=== PATIENT | female | born 1930 | race Caucasian/White ===

== ENCOUNTER 2016-09-07 05:55 | Inpatient (IN) | payer MEDICARE, OTHER ==
[~2016-09-07] VITALS: Ht 152.4 cm; Wt 63.0 kg
[2016-09-07] VITALS (11 sets, daily range): BP systolic 124–189; BP diastolic 56–95; PULSE 66–98; RESP 16–24; TEMP 98.5–98.6; O2SAT 91–99
[~2016-09-07 05:55] MED LIST: CIPR250T2 PO; ECOT81TA2 PO; MAGN400T PO; METR-1 PO; MYCO250 PO; NOVO7030P2 SQ; OMEP20TA PO; PRED5 PO; SAXA5TAB2 PO; TACR1 PO
[2016-09-07] MEDS ORDERED: ONDANSETRON HCL 4 MG/2 ML VIAL IV PUSH ONE (06:15)
[2016-09-07] MEDS ORDERED: SODIUM CHLOR 0.9% 1000 ML INJ 1,000 ML IV SCH (06:15)
[2016-09-07] MEDS ORDERED: MORPHINE SULFATE 4 MG/ML INJ IV PUSH ONE (06:15)
--- NOTE | 2016-09-07 06:22 | PD ---
HPI Chief Complaint: Fall Time Seen by Provider: 06:00 Travel History International Travel<30 days: No Contact w/Intl Traveler<30days: No Traveled to known affect area: No History of Present Illness HPI The patient is 86 year old female who presents to the [facility] emergency department with a history of reportedly being heard to fall by her son. She was found between the bed and the wall. The patient was noted to have skin tears to bilateral arms. The patient was noted to be confused. The patient was awake. The patient cannot recall the fall. The patient reports that she has 10 out of 10 right leg pain above her knee and the thigh, and left knee pain. The patient is unsure whether she hit her head. She is unsure whether she lost consciousness. She denies having any neck pain, paresthesias, or extremity weakness. The patient's blood sugar was noted by ambulance services on their arrival to be 45. The family had noted that the patient's blood sugar was 36 prior to ambulance services arrival and gave her oral glucose and a sandwich. The patient was given 12.5 g of glucose by ambulance services. The patient became increasingly alert. On arrival the patient is oriented to person , place, time, and situation. The patient has a history of renal failure status post renal transplant. The patient was noted prior to arrival to have tachycardia 1 teens with what appeared to be atrial fibrillation. The patient has no prior known history of A. fib. She denies taking any anticoagulants. The patient denies having any recent fevers, cough, congestion, neck pain, chest pain, shortness of breath, abdominal pain, vomiting, diarrhea, urinary symptoms, or neurologic symptoms. [facility] Past Medical History Narrative Medical The patient's past medical history is significant for chronic renal failure, history of poor vision, history of coronary artery disease and myocardial infarction previously, history of hypertension, COPD. Arthritis: Yes Asthma: Yes Autoimmune Disease: No Anxiety: No Depression: No Heart Rhythm Problems: No Cancer: No Cardiovascular Problems: Yes High Cholesterol: No Chemotherapy: No Chest Pain: No Congestive Heart Failure: No COPD: Yes Cerebrovascular Accident: No Coronary Artery Disease: No Diabetes: Yes Endocrine: Yes Gastrointestinal Disorders: Yes GERD: Yes Genitourinary: No Hiatal Hernia: Yes Hypertension: Yes Immune Disorder: No Kidney Stones: No Musculoskeletal: No Neurologic: No Psychiatric: No Reproductive: No Respiratory: Yes Migraines: No Radiation Therapy: No Renal Failure: Yes Seizures: No Sickle Cell Disease: No Sleep Apnea: No Thyroid Disease: No Ulcer: No Tubal Ligation: Yes Past Surgical History Narrative Surgical The patient's past surgical history is significant for renal transplant, cholecystectomy, hysterectomy, bilateral tubal ligation. Abdominal Surgery: Yes (appendix) AICD: No Appendectomy: Yes Arteriovenous Shunt: No Cardiac Surgery: No Cholecystectomy: Yes Ear Surgery: No Endocrine Surgery: No Eye Surgery: Yes Genitourinary Surgery: Yes (gall bladder, kidney transplant (RIGHT)) Gynecologic Surgery: Yes (hysterectomy) Insulin Pump: No Joint Replacement: No Oral Surgery: Yes (teeth pulled for dentures) Pacemaker: No Thoracic Surgery: No Other Surgery: Yes (KIDNEY TRANSPLANT) Social History Alcohol Use: No Tobacco Use: No Substance Use: No Allergies-Medications (Allergen,Severity, Reaction): Coded Allergies: No Known Allergies (Unverified , 09/07/16) Reported Meds & Prescriptions Reported Meds & Active Scripts Active Flagyl (Metronidazole) 500 Mg Tab 500 Mg PO TID 7 Days Ciprofloxacin Hcl (Ciprofloxacin HCl) 250 Mg Tab 250 Mg PO BID 7 Days Prograf 1 Mg Cap (Tacrolimus) 1 Mg Cap 2 Mg PO BID@06,18 30 Days Ecotrin (Aspirin) 81 Mg Tabec 81 Mg PO DAILY 30 Days Mag-Ox 400 (Magnesium Oxide) 400 Mg Tab 400 Mg PO DAILY 30 Days Cellcept (Mycophenolate Mofetil) 250 Mg Cap 750 Mg PO BID 30 Days Reported Omeprazole 20 mg (Omeprazole) 20 Mg Tab 20 Mg PO DAILY Deltasone 5 mg Tab (Prednisone) 5 Mg Tab 7.5 Mg PO DAILY Novolin 70/30 (Insulin Human Isoph/Insulin Regular) 100 Units/Ml Inj 15 Units SQ DAILY IN THE PM Novolin 70/30 (Insulin Human Isoph/Insulin Regular) 100 Units/Ml Inj 25 Units SQ DAILY IN THE AM Onglyza (Saxagliptin Hydrochloride) 5 Mg Tab 5 Mg PO DAILY Review of Systems Except as stated in HPI: all other systems reviewed are Neg General / Constitutional: No: Fever Eyes: No: Visual changes HENT: No: Headaches Cardiovascular: No: Chest Pain or Discomfort Respiratory: No: Shortness of Breath Gastrointestinal: No: Abdominal Pain Genitourinary: No: Dysuria Musculoskeletal: Positive: Myalgias, Arthralgias, Limited ROM, Pain Skin: No Rash Neurologic: Positive: Change in Mentation, No: Weakness, Focal Abnormalities, Slurred Speech, Sensory Disturbance Psychiatric: No: Depression Endocrine: No: Polydipsia Hematologic/Lymphatic: No: Easy Bruising Physical Exam Narrative General: The patient is a well-developed well-nourished female, uncomfortable appearing on examination reporting right leg pain.. Head and Neck exam: Head is normocephalic atraumatic. Eyes: Pupil are equal round and reactive to light. Nose: Midline septum with pink mucous membranes Mouth: Dentition unremarkable. Moist mucus membranes. Posterior oropharynx is not erythematous. No tonsillar hypertrophy. Uvula midline. Airway patent. Neck: No palpable lymphadenopathy. No nuchal rigidity. No thyromegaly. No spinous process tenderness to palpation. No step-off or crepitus, no erythema or ecchymosis. She has no pain with active range of motion of her neck with flexion and extension and rotation. Cardiovascular: Irregularly irregular with a rate in the low 100s without murmurs, gallops, or rubs. Lungs: Clear to auscultation bilaterally. No wheezes, rhonchi, or rales. Abdomen: Soft, without tenderness to palpation in all 4 quadrants of the abdomen. No guarding, rebound, or rigidity. Normal bowel sounds are audible. Extremities: No clubbing, cyanosis, or edema. 2+ pulses in all 4 extremities. No calf tenderness on palpation. On examination of the patient's extremities. She has no shortening, internal, or external rotation of her legs. The patient however reports having right hip and femur pain. The patient has tenderness on palpation of the area. The patient has no visible swelling or ecchymosis. The patient additionally on examination of the left knee has tenderness on palpation anteriorly over the patella. There is erythema noted. There is no effusion. No ballotable patella. No ligament laxity. Back: No spinous process tenderness to palpation. No costovertebral angle tenderness to palpation. Neurologic Exam: Grossly nonfocal. Skin Exam: The patient has skin tears, abrasions to the upper extremities with bandages applied prior to arrival. Data Data Last Documented VS Vital Signs Date Time Temp Pulse Resp B/P Pulse Ox O2 Delivery O2 Flow Rate FiO2 09/07/16 06:06 98.6 98 16 95 Room Air Orders Femur (Ap & Lat/2vws) (09/07/16 06:11) Hip, Uni(Ap&Lat) W Ap Pelvis (09/07/16 06:11) Knee, Complete (4vws) (09/07/16 06:11) Electrocardiogram (09/07/16 06:11) Complete Blood Count With Diff (09/07/16 06:11) Comprehensive Metabolic Panel (09/07/16 06:11) Creatine Kinase (Cpk) (09/07/16 06:11) Ckmb (Isoenzyme) Profile (09/07/16 06:11) Troponin I (09/07/16 06:11) B-Type Natriuretic Peptide (09/07/16 06:11) Prothrombin Time / Inr (Pt) (09/07/16 06:11) Act Partial Throm Time (Ptt) (09/07/16 06:11) Urinalysis - C+S If Indicated (09/07/16 06:11) Magnesium (Mg) (09/07/16 06:11) Chest, Single Ap (09/07/16 06:11) Ct Brain W/O Iv Contrast(Rout) (09/07/16 06:11) Iv Access Insert/Monitor (09/07/16 06:11) Ecg Monitoring (09/07/16 06:11) Oximetry (09/07/16 06:11) Blood Glucose (09/07/16 06:11) Ct Cerv Spine W/O Contrast (09/07/16 ) Sodium Chlor 0.9% 1000 Ml Inj (Ns 1000 M (09/07/16 06:15) Morphine Inj (Morphine Inj) (09/07/16 06:15) Ondansetron Inj (Zofran Inj) (09/07/16 06:15) Labs Laboratory Tests Test 09/07/16 06:20 White Blood Count 10.7 TH/MM3 Red Blood Count 4.24 MIL/MM3 Hemoglobin 11.6 GM/DL Hematocrit 35.8 % Mean Corpuscular Volume 84.3 FL Mean Corpuscular Hemoglobin 27.4 PG Mean Corpuscular Hemoglobin 32.5 % Concent Red Cell Distribution Width 16.5 % Platelet Count 235 TH/MM3 Mean Platelet Volume 7.7 FL Neutrophils (%) (Auto) 83.8 % Lymphocytes (%) (Auto) 9.5 % Monocytes (%) (Auto) 6.0 % Eosinophils (%) (Auto) 0.3 % Basophils (%) (Auto) 0.4 % Neutrophils # (Auto) 9.0 TH/MM3 Lymphocytes # (Auto) 1.0 TH/MM3 Monocytes # (Auto) 0.6 TH/MM3 Eosinophils # (Auto) 0.0 TH/MM3 Basophils # (Auto) 0.0 TH/MM3 CBC Comment DIFF FINAL Differential Comment Prothrombin Time 11.2 SEC Prothromb Time International 1.0 RATIO Ratio Activated Partial 21.4 SEC Thromboplast Time MDM Medical Decision Making Medical Screen Exam Complete: Yes Emergency Medical Condition: Yes Medical Record Reviewed: Yes Differential Diagnosis Right hip fracture, versus femur fracture, versus pelvic fracture, versus musculoskeletal strain, versus left knee fracture, versus intracranial trauma, versus cervical spine. Narrative Course During the course of the patients emergency department visit, the patients history, examination, and differential diagnosis were reviewed with the patient. The patient had IV access obtained and blood work sent for analysis. The patient was placed on a retail sales merchandiser with oximetry and blood pressure monitoring. This is a patient status post fall, likely related to confusion from hypoglycemia. This is a patient with what appears to be new onset atrial fibrillation. EKG was done on arrival that shows atrial fibrillation with a heart rate of 93, marked left axis deviation, no acute ST segment elevation is noted. Chest x-ray, left knee x-ray, right femur, right hip, pelvis x-ray were ordered. CT scan of the head and neck was ordered. The patient was provided morphine for pain, Zofran for nausea, normal saline at 75 mL per hour was started. The patients laboratory studies were reviewed and remarkable for a CBC that is unremarkable. PT PTT unremarkable within normal limits. The patient's case has been checked out to Dr. Brewer as the rest of the patient's laboratory studies and imaging are pending. The patient will be admitted to the hospital for continued evaluation and treatment. Diagnosis Primary Impression: Fall Qualified Code: W19.XXXA - Fall, initial encounter Additional Impressions: Hypoglycemia New onset atrial fibrillation Johana Ortiz MD Sep 07, 2016 06:22
[2016-09-07 06:51] LABS: BASOPHIL % 0.4 % (0.0-2.0); EOSINOPHIL % 0.3 % (0.0-4.0); HEMATOCRIT 35.8 % (35.0-46.0); HEMO FLAGS DIFF FINAL; LYMPH % 9.5 % (9.0-44.0); MEAN CELL VOLUME 84.3 FL (80.0-100.0); MEAN CORPUSCULAR HEMOGLOBIN 27.4 PG (27.0-34.0); MEAN CORPUSCULAR HGB CONC 32.5 % (32.0-36.0); NEUT % 83.8 % (16.0-70.0); PLATELET COUNT 235 TH/MM3 (150-450); RED BLOOD COUNT 4.24 MIL/MM3 (4.00-5.30); RED CELL DISTRIBUTION WIDTH 16.5 % (11.6-17.2); WHITE BLOOD COUNT 10.7 TH/MM3 (4.0-11.0)
--- NOTE | 2016-09-07 07:02 | PD ---
Physical Exam Date Seen by Provider: Sep 07, 2016 Time Seen by Provider: 07:00 Narrative The patient is a 86-year-old female was initially evaluated by the previous physician, Dr. Ortiz. Please refer to the initial history, physical, diagnostic evaluation, treatment modality plan. The patient was signed out at 7 AM with imaging laboratory evaluation pending. The patient apparently fell was complaining of right hip and right leg pain and was also noted to have new onset atrial fibrillation. Data Data Last Documented VS Vital Signs Date Time Temp Pulse Resp B/P Pulse Ox O2 Delivery O2 Flow Rate FiO2 09/07/16 11:17 74 16 146/70 95 Room Air 09/07/16 06:06 98.6 Orders Femur (Ap & Lat/2vws) (09/07/16 06:11) Hip, Uni(Ap&Lat) W Ap Pelvis (09/07/16 06:11) Knee, Complete (4vws) (09/07/16 06:11) Electrocardiogram (09/07/16 06:11) Complete Blood Count With Diff (09/07/16 06:11) Comprehensive Metabolic Panel (09/07/16 06:11) Creatine Kinase (Cpk) (09/07/16 06:11) Ckmb (Isoenzyme) Profile (09/07/16 06:11) Troponin I (09/07/16 06:11) B-Type Natriuretic Peptide (09/07/16 06:11) Prothrombin Time / Inr (Pt) (09/07/16 06:11) Act Partial Throm Time (Ptt) (09/07/16 06:11) Urinalysis - C+S If Indicated (09/07/16 06:11) Magnesium (Mg) (09/07/16 06:11) Chest, Single Ap (09/07/16 06:11) Ct Brain W/O Iv Contrast(Rout) (09/07/16 06:11) Iv Access Insert/Monitor (09/07/16 06:11) Ecg Monitoring (09/07/16 06:11) Oximetry (09/07/16 06:11) Blood Glucose (09/07/16 06:11) Ct Cerv Spine W/O Contrast (09/07/16 ) Sodium Chlor 0.9% 1000 Ml Inj (Ns 1000 M (09/07/16 06:15) Morphine Inj (Morphine Inj) (09/07/16 06:15) Ondansetron Inj (Zofran Inj) (09/07/16 06:15) CKMB (09/07/16 06:20) CKMB% (09/07/16 06:20) Tetanus/Diphtheria Tox Adult (Tetanus/Di (09/07/16 07:45) Aspirin Chew (Aspirin Chew) (09/07/16 08:15) Ct Pelvis W/O Iv Contrast (09/07/16 ) Admit Order (Ed Use Only) (09/07/16 11:46) Labs Laboratory Tests Test 09/07/16 09/07/16 06:20 07:00 White Blood Count 10.7 TH/MM3 Red Blood Count 4.24 MIL/MM3 Hemoglobin 11.6 GM/DL Hematocrit 35.8 % Mean Corpuscular Volume 84.3 FL Mean Corpuscular Hemoglobin 27.4 PG Mean Corpuscular Hemoglobin 32.5 % Concent Red Cell Distribution Width 16.5 % Platelet Count 235 TH/MM3 Mean Platelet Volume 7.7 FL Neutrophils (%) (Auto) 83.8 % Lymphocytes (%) (Auto) 9.5 % Monocytes (%) (Auto) 6.0 % Eosinophils (%) (Auto) 0.3 % Basophils (%) (Auto) 0.4 % Neutrophils # (Auto) 9.0 TH/MM3 Lymphocytes # (Auto) 1.0 TH/MM3 Monocytes # (Auto) 0.6 TH/MM3 Eosinophils # (Auto) 0.0 TH/MM3 Basophils # (Auto) 0.0 TH/MM3 CBC Comment DIFF FINAL Differential Comment Prothrombin Time 11.2 SEC Prothromb Time International 1.0 RATIO Ratio Activated Partial 21.4 SEC Thromboplast Time Sodium Level 140 MEQ/L Potassium Level 4.0 MEQ/L Chloride Level 107 MEQ/L Carbon Dioxide Level 24.8 MEQ/L Anion Gap 8 MEQ/L Blood Urea Nitrogen 21 MG/DL Creatinine 0.77 MG/DL Estimat Glomerular Filtration 71 ML/MIN Rate Random Glucose 132 MG/DL Calcium Level 8.0 MG/DL Magnesium Level 1.8 MG/DL Total Bilirubin 0.2 MG/DL Aspartate Amino Transf 20 U/L (AST/SGOT) Alanine Aminotransferase 14 U/L (ALT/SGPT) Alkaline Phosphatase 51 U/L Total Creatine Kinase 158 U/L Creatine Kinase MB 3.5 NG/ML Troponin I 0.06 NG/ML B-Type Natriuretic Peptide 287 PG/ML Total Protein 5.7 GM/DL Albumin 2.5 GM/DL Urine Color LIGHT-YELLOW Urine Turbidity CLEAR Urine pH 6.0 Urine Specific [place] 1.009 Urine Protein 100 mg/dL Urine Glucose (UA) NEG mg/dL Urine Ketones NEG mg/dL Urine Occult Blood TRACE Urine Nitrite NEG Urine Bilirubin NEG Urine Urobilinogen LESS THAN 2.0 MG/DL Urine Leukocyte Esterase NEG Urine RBC 1 /hpf Urine WBC 1 /hpf Urine Squamous Epithelial <1 /hpf Cells Urine Mucus FEW /lpf Microscopic Urinalysis Comment CULT NOT INDICATED MDM Medical Record Reviewed: Yes Supervised Visit with [facility]: No Interpretation(s) EKG reveals atrial fibrillation with a rate of 93. Laboratory Tests Test 09/07/16 06:20 White Blood Count 10.7 TH/MM3 Red Blood Count 4.24 MIL/MM3 Hemoglobin 11.6 GM/DL Hematocrit 35.8 % Mean Corpuscular Volume 84.3 FL Mean Corpuscular Hemoglobin 27.4 PG Mean Corpuscular Hemoglobin 32.5 % Concent Red Cell Distribution Width 16.5 % Platelet Count 235 TH/MM3 Mean Platelet Volume 7.7 FL Neutrophils (%) (Auto) 83.8 % Lymphocytes (%) (Auto) 9.5 % Monocytes (%) (Auto) 6.0 % Eosinophils (%) (Auto) 0.3 % Basophils (%) (Auto) 0.4 % Neutrophils # (Auto) 9.0 TH/MM3 Lymphocytes # (Auto) 1.0 TH/MM3 Monocytes # (Auto) 0.6 TH/MM3 Eosinophils # (Auto) 0.0 TH/MM3 Basophils # (Auto) 0.0 TH/MM3 CBC Comment DIFF FINAL Differential Comment Prothrombin Time 11.2 SEC Prothromb Time International 1.0 RATIO Ratio Activated Partial 21.4 SEC Thromboplast Time B-Type Natriuretic Peptide 287 PG/ML CMP reveals BUN of 21, glucose 132, total protein 5.7, albumin 2.5, calcium 8.0 , otherwise unremarkable CK 158, CK-MB 3.[address] the pelvis reveals no acute fracture. Osteopenia. No dislocation. Moderate osteoarthritis of the bilateral hips. Differential Diagnosis Differential diagnosis includes mechanical fall, pelvic rami fracture, hip fracture, femur fracture, new onset atrial fibrillation, left foot abnormality, UTI, hypoglycemia. Narrative Course The patient was initially evaluated by the previous physician, Dr. Ortiz, please refer to the initial history, physical, diagnostic evaluation, and treatment modality plan. Patient was signed out with CT, x-ray, and laboratory evaluation pending. Patient was also noted to have new onset atrial fibrillation today, admission was recommended by the previous physician. On telemetry monitoring it appears the patient varied between atrial fibrillation with a controlled rate that was less than 100 and occasional sinus rhythm with visible P waves. Physical examination reveals superficial skin tears to the arms bilaterally as well as a small hematoma/bruise over the anterior aspect the left knee. The patient was able to flex the right hip and right knee, they complain of right hip to mid right femur pain. The patient's tetanus shot was updated as she cannot recall the last tetanus shot. The patient's initial blood sugar was noted to be 36 at home according to the son who said the patient. When EMS arrived the patient's blood sugar was 45, and she was subsequently administered 12.5 g of dextrose intravenously. Upon arrival the patient's blood sugar was normal. The patient states she last took her insulin 70/30 last night at 9:30 PM, 15 units. The patient does take an oral hypoglycemic medication, Saxagliptin. The patient's troponin was elevated 0.06, may be secondary to new onset atrial fibrillation. Therefore, patient was administered aspirin 162 mg orally. X-rays are negative for fracture and CT the pelvis is negative for fracture. The patient will be admitted for new-onset atrial fibrillation with mildly elevated troponin of 0.06. Patient will also be admitted for evaluation of her glucose as she came in with hypoglycemia and is on an oral hypoglycemic medication as well as insulin. Physician Communication Physician Communication [facility] were paged for admission. I discussed the patient with Dr. Sow who agrees with admission. Diagnosis Primary Impression: New onset atrial fibrillation Additional Impression: Hypoglycemia Admitting Information Admitting Physician Requests: Admit Condition: Stable Alex Brewer MD Sep 07, 2016 07:02
[2016-09-07 07:05] LABS: APTT (PATIENT) 21.4 SEC (24.3-30.1); PROTHROMBIN TIME - PATIENT 11.2 SEC (9.8-11.6)
--- NOTE | 2016-09-07 07:09 | RADRPT ---
EXAM DATE/TIME: 09/07/2016 06:46 [facility] COMPARISON: No previous studies available for comparison. INDICATIONS : Fall, confusion. RADIATION DOSE: 30.24 CTDIvol (mGy) MEDICAL HISTORY : Hypertension. SURGICAL HISTORY : Appendectomy. Hysterectomy.Cholecystectomy. ENCOUNTER: Initial ACUITY: 1 day PAIN SCALE: 0/10 LOCATION: cranial TECHNIQUE: Multiple contiguous axial images were obtained of the head. Using automated exposure control and adj ustment of the mA and/or kV according to patient size, radiation dose was kept as low as reasonably a chievable to obtain optimal diagnostic quality images. FINDINGS: CEREBRUM: The ventricles are normal for age. There are chronic lacunar infarcts in the left thalamus and the ri ght internal capsule. No evidence of midline shift, mass lesion, hemorrhage or acute infarction. No extra-axial fluid collections are seen. POSTERIOR FOSSA: The cerebellum and brainstem are intact. The 4th ventricle is midline. The cerebellopontine angle i s unremarkable. EXTRACRANIAL: The visualized portion of the orbits is intact. SKULL: The calvaria is intact. No evidence of skull fracture. CONCLUSION: Bilateral old lacunar infarcts. No evidence of hemorrhage or edema Kenn Moreau MD on September 07, 2016 at 7:07 Board Certified Radiologist. This report was verified electronically.
--- NOTE | 2016-09-07 07:12 | RADRPT ---
EXAM DATE/TIME: 09/07/2016 06:46 [facility] COMPARISON: No previous studies available for comparison. INDICATIONS : Fall, neck pain. RADIATION DOSE: 20.58 CTDIvol (mGy) MEDICAL HISTORY : Hypertension. SURGICAL HISTORY : Appendectomy. Cholecystectomy.Hysterectomy. ENCOUNTER: Initial ACUITY: 1 day PAIN SCALE: 2/10 LOCATION: Bilateral neck TECHNIQUE: Volumetric scanning of the cervical spine was performed. Multiplanar reconstructions in the sagittal, coronal and oblique axial planes were performed. Using automated exposure control and adjustment o f the mA and/or kV according to patient size, radiation dose was kept as low as reasonably achievable to obtain optimal diagnostic quality images. FINDINGS: VERTEBRAE: Normal vertebral body height. Mild disc space narrowing at C5-6 and C6-7. There are fused posterior e lements at C2-3 and the right-sided C6-C7. ALIGNMENT: There is anterior spondylolisthesis of C4 on C5, C5 on C6 and C6 on C7.. C2-C3: The bony spinal canal is normal in size. No evidence of disc bulge or herniation. The neural forami na are bilaterally patent. C3-C4: The bony spinal canal is normal in size. No evidence of disc bulge or herniation. The neural forami na are bilaterally patent. C4-C5: The bony spinal canal is normal in size. No evidence of disc bulge or herniation. The neural forami na are bilaterally patent. C5-C6: The bony spinal canal is normal in size. No evidence of disc bulge or herniation. The neural forami na are bilaterally patent. C6-C7: The bony spinal canal is normal in size. No evidence of disc bulge or herniation. The neural forami na are bilaterally patent. C7-T1: The bony spinal canal is normal in size. No evidence of disc bulge or herniation. The neural forami na are bilaterally patent. 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 No evidence of acute fracture. Kenn Moreau MD on September 07, 2016 at 7:09 Board Certified Radiologist. This report was verified electronically.
[2016-09-07 07:19] LABS: ALKALINE PHOSPHATASE 51 U/L (45-117); ALT (GPT) 14 U/L (10-53); ANION GAP 8 MEQ/L (5-15); AST (GOT) 20 U/L (15-37); BICARBONATE 24.8 MEQ/L (21.0-32.0); BLOOD UREA NITROGEN 21 MG/DL (7-18); CHLORIDE 107 MEQ/L (98-107); CREATINE KINASE 158 U/L (26-192); GLOMERULAR FILTRATION RATE 71 ML/MIN (>89); MAGNESIUM 1.8 MG/DL (1.5-2.5); SODIUM (NA) 140 MEQ/L (136-145); TOTAL BILIRUBIN ADULT 0.2 MG/DL (0.2-1.0)
[2016-09-07] MEDS ORDERED: MAGN400T2 PO (07:29)
[2016-09-07] MEDS ORDERED: PRED5TAB PO (07:29)
[2016-09-07] MEDS ORDERED: TACR1 PO (07:29)
[2016-09-07] MEDS ORDERED: NOVO7030P2 SQ ×2 (07:29)
[2016-09-07] MEDS ORDERED: ONGL5TAB PO (07:29)
[2016-09-07] MEDS ORDERED: OMEP20TA PO (07:29)
[2016-09-07] MEDS ORDERED: MYCO250C PO (07:29)
[2016-09-07 07:32] LABS: CKMB 3.5 NG/ML (0.5-3.6)
[2016-09-07 07:38] LABS: BLOOD, URINE TRACE (NEG); GLUCOSE,URINE NEG (NEG); KETONE, URINE NEG (NEG); MUCUS URINE FEW /lpf (OCC); NITRITE,URINE NEG (NEG); SQUAMOUS EPITHELIAL CELL URINE <1 /hpf (0-5); URINE COLOR LIGHT-YELLOW (YELLW/STRAW)
[2016-09-07 07:42] LABS: COMMENT (UR) CULT NOT INDICATED; CULTURE IF INDICATED CULT NOT INDICATED
[2016-09-07] MEDS ORDERED: TETANUS/DIPHTHERIA TOXOID ADULT 0.5 ML VIAL IM ONE (07:45)
[2016-09-07] MEDS ORDERED: ASPIRIN 81 MG CHEW TAB CHEW ONE (08:15)
--- NOTE | 2016-09-07 09:32 | RADRPT ---
EXAM DATE/TIME: 09/07/2016 08:26 [facility] COMPARISON: CHEST SINGLE AP, February 22, 2016, 15:40. INDICATIONS: Chest pain due to fall out of bed this am. MEDICAL HISTORY: Hypertension. Diabetes mellitus type II. Chronic obstructive pulmonary disease. SURGICAL HISTORY: Appendectomy. Cholecystectomy. Hysterectomy. ENCOUNTER: Initial ACUITY: 1 day PAIN SCORE: 4/10 LOCATION: Chest FINDINGS: Lungs are under aerated with mild interstitial prominence. The heart is enlarged. There is no pneum othorax. Degenerative changes are seen about the right shoulder. There is no evidence for rib fract ure. CONCLUSION: Under aerated with mild interstitial prominence and cardiomegaly. Thony Chavez MD FACR on September 07, 2016 at 9:22 Board Certified Radiologist. This report was verified electronically.
--- NOTE | 2016-09-07 09:33 | RADRPT ---
EXAM DATE/TIME: 09/07/2016 08:33 [facility] COMPARISON: No previous studies available for comparison. INDICATIONS : Right hip pain due to fallout of bed. MEDICAL HISTORY : Hypertension. Chronic obstructive pulmonary disease. Diabetes mellitus type II. SURGICAL HISTORY : Appendectomy. Cholecystectomy.Hysterectomy. ENCOUNTER: Initial ACUITY: 1 day PAIN SCORE: 4/10 LOCATION: Right pelvis Hip. FINDINGS: The bones are diffusely osteopenic. No acute fracture identified. Extensive vascular calcifications. Surgical clips in the right hemipelvis. Flocculent calcification central pelvis probably from calcifi ed fibroids. Contrast in sigmoid diverticula. CONCLUSION: 1. No acute bony abnormalities. Osteopenia. Osei Lopez MD on September 07, 2016 at 9:25 Board Certified Radiologist. This report was verified electronically.
--- NOTE | 2016-09-07 09:34 | RADRPT ---
EXAM DATE/TIME: 09/07/2016 08:38 [facility] COMPARISON: No previous studies available for comparison. INDICATIONS : Right femur pain due to fall out of bed. MEDICAL HISTORY : Hypertension. Chronic obstructive pulmonary disease. Diabetes mellitus type II. SURGICAL HISTORY : Appendectomy. Cholecystectomy.Hysterectomy. ENCOUNTER: Initial ACUITY: 1 day PAIN SCORE: 4/10 LOCATION: Right Femur. FINDINGS: Two view examination of the right femur demonstrates osteopenia. No acute fracture. Extensive vascula r calcifications. 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 Moderate osteoarthritis right hip. CONCLUSION: 1. No acute bony abnormalities. Osei Lopez MD on September 07, 2016 at 9:32 Board Certified Radiologist. This report was verified electronically.
--- NOTE | 2016-09-07 09:35 | RADRPT ---
EXAM DATE/TIME: 09/07/2016 08:42 [facility] COMPARISON: No previous studies available for comparison. INDICATIONS : Left knee pain due to fall out of bed. MEDICAL HISTORY : Hypertension. Chronic obstructive pulmonary disease. Diabetes mellitus type II. SURGICAL HISTORY : Appendectomy. Cholecystectomy.Hysterectomy. ENCOUNTER: Initial ACUITY: 1 day PAIN SCORE: 4/10 LOCATION: Left Knee. FINDINGS: No acute fracture. Extensive vascular calcifications. 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 No significant join t effusion. CONCLUSION: 1. No acute bony abnormalities. Osei Lopez MD on September 07, 2016 at 9:33 Board Certified Radiologist. This report was verified electronically.
--- NOTE | 2016-09-07 10:24 | EKG ---
Date Performed: 09/07/2016 Time Performed: 06:06:29 PTAGE: 86 years EKG: Sinus rhythm WITH FREQUENT PACs MARKED LEFT AXIS DEVIATION VOLTAGE CRITERIA FOR LVH POSSIBLE ANTERIOR MYOCARDIAL INFARCTION ABNORMAL ECG PREVIOUS TRACING : 02/14/2016 16.14 DOCTOR: Kenn Crowley Interpretating Date/Time 09/07/2016 10:23:49
--- NOTE | 2016-09-07 11:02 | RADRPT ---
EXAM DATE/TIME: 09/07/2016 10:21 [facility] COMPARISON: No previous studies available for comparison. INDICATIONS : Right hip pain after fall. ORAL CONTRAST: No oral contrast ingested. RADIATION DOSE: 20.34 CTDIvol (mGy) MEDICAL HISTORY : Cardiovascular disease. Hypertension. Diabetes mellitus type 1. SURGICAL HISTORY : Cholecystectomy. Appendectomy. ENCOUNTER: Initial ACUITY: 1 day PAIN SCALE: 5/10 LOCATION: Right hip TECHNIQUE: Volumetric scanning of the pelvis was performed. Using automated exposure control and adjustment of the mA and/or kV according to patient size, radiation dose was kept as low as reasonably achievable t o obtain optimal diagnostic quality images. FINDINGS: No acute fracture is identified. The bones are osteopenic. Renal transplant in right lower quadrant. No hydronephrosis. Small fat containing ventral hernia. Calcified fibroids and residual uterine tissu e. Severe sigmoid diverticulosis containing some residual barium. CONCLUSION: 1. No acute fracture. Osteopenia. No dislocation. Moderate osteoarthritis of the bilateral hips. Osei Lopez MD on September 07, 2016 at 10:55 Board Certified Radiologist. This report was verified electronically.
[2016-09-07] MEDS ORDERED: SODIUM CHLORIDE 0.9% FLUSH 5 ML FLUSH FLUSH PRN (12:00)
[2016-09-07] MEDS ORDERED: PILL SPLITTER OTHER PRN (12:00)
[2016-09-07] MEDS ORDERED: ACETAMINOPHEN 325 MG TAB PO PRN (12:00)
[2016-09-07] MEDS ORDERED: NALOXONE HCL 0.4 MG/ML AMP IV PRN (12:00)
[2016-09-07] MEDS ORDERED: DEXTROSE 50% IN WATER 50 ML VIAL(D50) IV PUSH PRN (12:15)
[2016-09-07] MEDS ORDERED: GLUCAGON 1 MG/ML VIAL OTHER PRN (12:15)
--- NOTE | 2016-09-07 14:20 | HHI.HP ---
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 Patient brought to the hospital after she was found on the floor after fall, was noted hypoglycemic with BS of 36, bleeding from skin tears on both arm. States she could not stand and legs were buckling. Complained of right hip and right leg pain. Pt. states that for the last 3 nights, she woke up to use bathroom and when she stood up and started walking she felt disoriented, and unsteady. On the second night, she could not stand and lost control of bladder in bed, she felt the sheets were heavy on her legs. Last night, she went to bed okay and was found on floor, per sons she appeared confused. Pt. doesn't recall falling. She is a fairly good historian, however, she only remembers seeing her son assisting her. Denies headache, neck pain, paresthesias, numbness. Pt. is a diabetic and takes Novolin 70/30 in am and pm, also on PO hypoglycemic Onglyza. States she has been doing well, appetite has been good, she is very good about taking a nighttime snack after taking insulin. When EMS arrived, her BS was 45. Her family gave her oral glucose and a sandwich. EMS gave her 12.5 g of glucose. Pt. arrived in the ED, stable, alert and oriented x 3. She was noted tachycardic, possibly afib. Pt. was seen last year by Dr. Bah during admission for COPD exacerbation for poss. afib and wide complex tach. He believed dysrhythmia was likely brought on by respiratory illness and duonebs and recommended aspirin. Pt. denies palpitations, no cp, no excessive sob. No recent fever, no chills. Has hx of renal transplant and follows up with Dr. Westbrook, renal function is stable, she is compliant with medications. In the ED, she was evaluated, laboratory work up was done. CBC unremarkable. BMP stable. Trop slightly elevated 0.06, no chest pain. BNP was 287. Imaging studies were completed, no fractures. CT of head shows bilat old lacunar strokes , pt. denies any prior history. Pt.'s heart rate stable, EKG reviewed, noted with some PACs, poss. afib. Pt. admitted for further evaluation and treatment. (Annette Cagle) Review of Systems Constitutional: DENIES: Diaphoretic episodes, Fatigue, Fever, Weight gain, Weight loss, Chills, Dizziness, Change in appetite, Night Sweats Endocrine: DENIES: Abnorml menstrual pattern, Heat/cold intolerance, Polydipsia , Polyuria, Polyphagia Eyes: DENIES: Blurred vision, Diplopia, Eye inflammation, Eye pain, Vision loss , Photosensitivity, Double Vision Ears, nose, mouth, throat: DENIES: Tinnitus, Hearing loss, Vertigo, Nasal discharge, Oral lesions, Throat pain, Hoarseness, Ear Pain, Running Nose, Epistaxis, Sinus Pain, Toothache, Odynophagia Respiratory: DENIES: Apneas, Cough, Snoring, Wheezing, Hemoptysis, Sputum production, Shortness of breath Cardiovascular: DENIES: Chest pain, Palpitations, Syncope, Dyspnea on Exertion , PND, Lower Extremity Edema, Orthopnea, Claudication Gastrointestinal: DENIES: Abdominal pain, Black stools, Bloody stools, Constipation, Diarrhea, Nausea, Vomiting, Difficulty Swallowing, Anorexia Genitourinary: DENIES: Abnormal vaginal bleeding, Dysmenorrhea, Dyspareunia, Sexual dysfunction, Urinary frequency, Urinary incontinence, Urgency, Hematuria , Dysuria, Nocturia, Vaginal discharge Musculoskeletal: COMPLAINS OF: Joint pain Integumentary: DENIES: Abnormal pigmentation, Pruritus, Rash, Nail changes, Breast masses, Breast skin changes, Nipple discharge Hematologic/lymphatic: COMPLAINS OF: Bruising, DENIES: Lymphadenopathy Immunologic/allergic: DENIES: Eczema, Urticaria Neurologic: COMPLAINS OF: Poor Balance, DENIES: Abnormal gait, Headache, Localized weakness, Paresthesias, Seizures, Speech Problems, Tremor Psychiatric: DENIES: Anxiety, Confusion, Mood changes, Depression, Hallucinations, Agitation, Suicidal Ideation, Homicidal Ideation, Delusions ( Annette Cagle) Past Family Social History Past Medical History End-stage kidney disease, now resolved after kidney transplant Poor vision Coronary disease/myocardial infarction Hypertension COPD Former smoker quit 40 years ago Asthma Gallbladder disease hiatal hernia Appendicitis Diverticulitis Wide complex tach, poss. afib during admit 2016, seen by Dr. Bah. Past Surgical History Renal transplantation Cholecystectomy Hysterectomy Tubal ligation Reported Medications Reported Meds & Active Scripts Active Reported Omeprazole 20 Mg Tab 20 Mg PO DAILY Onglyza (Saxagliptin) 5 Mg Tab 5 Mg PO DAILY Prednisone 5 Mg Tab 7.5 Mg PO DAILY Magnesium Oxide 400 Mg Tab 400 Mg PO DAILY Prograf (Tacrolimus) 1 Mg Cap 2 Mg PO BID Mycophenolate (Mycophenolate Mofetil) 250 Mg Cap 750 Mg PO BID Novolin 70-30 Inj (Insulin Human Isoph/Insulin Regular) 1,000 Unit/10 Ml Vial 15 Units SQ HS Novolin 70-30 Inj (Insulin Human Isoph/Insulin Regular) 1,000 Unit/10 Ml Vial 25 Units SQ (Annette Cagle) Allergies: Coded Allergies: No Known Allergies (Unverified , 09/07/16) Active Ordered Medications Inpatient Medications Acetaminophen (Tylenol) 650 mg Q4H PRN PO TEMP > 100.4; Start 09/07/16 at 12:00 Aspirin (Aspirin Chew) 162 mg ONCE ONCE CHEW Last administered on 09/07/16 09: 14; Start 09/07/16 at 08:15; Stop 09/07/16 at 08:16; Status DC Dextrose (D50w (Vial) Inj) 25 ml UNSCH PRN IV PUSH HYPOGLYCEMIA-SEE COMMENTS; Start 09/07/16 at 12:15 Glucagon (Glucagon Inj) 1 mg UNSCH PRN OTHER HYPOGLYCEMIA-SEE COMMENTS; Start 09/07/16 at 12:15 IV Flush (NS Flush) 2 ml BID FLUSH ; Start 09/07/16 at 21:00 Magnesium Oxide (Mag-Ox) 400 mg DAILY PO ; Start 09/08/16 at 09:00 Miscellaneous (Pill Splitter) 1 ea UNSCH PRN OTHER SEE LABEL COMMENTS; Start at 12:00 Morphine Sulfate (Morphine Inj) 4 mg ONCE ONCE IV PUSH Last administered on 07:48; Start 09/07/16 at 06:15; Stop 09/07/16 at 06:19; Status DC Mycophenolate Mofetil (Cellcept) 750 mg BID PO ; Start 09/07/16 at 21:00 Naloxone HCl (Narcan Inj) 0.4 mg UNSCH PRN IV SEE LABEL COMMENTS; Start at 12:00 Ondansetron HCl (Zofran Inj) 4 mg Q6H PRN IVP NAUSEA OR VOMITING; Start at 12:00 Pantoprazole Sodium (Protonix) 20 mg DAILY PO ; Start 09/08/16 at 09:00 Prednisone (Deltasone) 7.5 mg DAILY PO ; Start 09/08/16 at 09:00 Sodium Chloride (NS 1000 ml Inj) 1,000 ml @ 75 mls/hr [id number] IV Last administered on 09/07/16t 07:47; Start 09/07/16 at 06:15 Tacrolimus (Prograf) 2 mg BID PO ; Start 09/07/16 at 21:00 Tetanus/ Diphtheria Toxoids (Tetanus/ Diphtheria Tox Adult) 0.5 ml ONCE ONCE IM Last administered on 09/07/16t 07:49; Start 09/07/16 at 07:45; Stop 09/07/16 at 07:46; Status DC Family History Reviewed but of contributory Social History Recently , lives in a mobile alone by herself. One of her sons lives in the same property in another mobile home. Former smoker, no current smoking alcohol or illicit drug use Active, takes care of own houses, no assistive devices (Annette Cagle) Physical Exam Vital Signs Vital Signs Date Time Temp Pulse Resp B/P Pulse Ox O2 Delivery O2 Flow Rate FiO2 09/07/16 13:33 80 17 130/95 96 Room Air 09/07/16 12:05 74 17 124/56 96 Room Air 09/07/16 11:17 74 16 146/70 95 Room Air 09/07/16 09:16 78 18 159/71 98 Room Air 09/07/16 07:17 94 20 147/74 98 Room Air 09/07/16 06:06 98.6 98 16 95 Room Air Physical Exam GENERAL: This is a well-nourished, well-developed patient, in no apparent distress. SKIN: Bruises to both arms, skin tears to forearms HEAD: Atraumatic. Normocephalic. No temporal or scalp tenderness. EYES: Pupils equal round and reactive. Extraocular motions intact. No scleral icterus. No injection or drainage. ENT: Nose without bleeding, purulent drainage or septal hematoma. Throat without erythema, tonsillar hypertrophy or exudate. Uvula midline. Airway patent. NECK: Trachea midline. No JVD or lymphadenopathy. Supple, nontender, no meningeal signs. CARDIOVASCULAR: Regular rate and rhythm without murmurs, gallops, or rubs. RESPIRATORY: Clear to auscultation. Breath sounds equal bilaterally. No wheezes , rales, or rhonchi. GASTROINTESTINAL: Abdomen soft, non-tender, nondistended. No hepato-splenomegaly , or palpable masses. No guarding. MUSCULOSKELETAL: Extremities without clubbing, cyanosis, or edema. No joint tenderness, effusion, or edema noted. No calf tenderness. Negative Homans sign bilaterally. NEUROLOGICAL:Awake, alert, oriented x 3. No focal deficits. Laboratory Laboratory Tests Test 09/07/16 09/07/16 06:20 07:00 White Blood Count 10.7 Red Blood Count 4.24 Hemoglobin 11.6 Hematocrit 35.8 Mean Corpuscular Volume 84.3 Mean Corpuscular Hemoglobin 27.4 Mean Corpuscular Hemoglobin 32.5 Concent Red Cell Distribution Width 16.5 Platelet Count 235 Mean Platelet Volume 7.7 Neutrophils (%) (Auto) 83.8 Lymphocytes (%) (Auto) 9.5 Monocytes (%) (Auto) 6.0 Eosinophils (%) (Auto) 0.3 Basophils (%) (Auto) 0.4 Neutrophils # (Auto) 9.0 Lymphocytes # (Auto) 1.0 Monocytes # (Auto) 0.6 Eosinophils # (Auto) 0.0 Basophils # (Auto) 0.0 CBC Comment DIFF FINAL Differential Comment Prothrombin Time 11.2 Prothromb Time International 1.0 Ratio Activated Partial 21.4 Thromboplast Time Sodium Level 140 Potassium Level 4.0 Chloride Level 107 Carbon Dioxide Level 24.8 Anion Gap 8 Blood Urea Nitrogen 21 Creatinine 0.77 Estimat Glomerular Filtration 71 Rate Random Glucose 132 Calcium Level 8.0 Magnesium Level 1.8 Total Bilirubin 0.2 Aspartate Amino Transf 20 (AST/SGOT) Alanine Aminotransferase 14 (ALT/SGPT) Alkaline Phosphatase 51 Total Creatine Kinase 158 Creatine Kinase MB 3.5 Troponin I 0.06 B-Type Natriuretic Peptide 287 Total Protein 5.7 Albumin 2.5 Urine Color LIGHT-YELLOW Urine Turbidity CLEAR Urine pH 6.0 Urine Specific [place] 1.009 Urine Protein 100 Urine Glucose (UA) NEG Urine Ketones NEG Urine Occult Blood TRACE Urine Nitrite NEG Urine Bilirubin NEG Urine Urobilinogen LESS THAN 2.0 Urine Leukocyte Esterase NEG Urine RBC 1 Urine WBC 1 Urine Squamous Epithelial <1 Cells Urine Mucus FEW Microscopic Urinalysis Comment CULT NOT INDICATED (Annette Cagle) Result Diagram: 09/07/1661909/07/16619 Imaging Last Impressions Knee X-Ray 09/07/16610 Signed Impressions: Service Date/Time: Wednesday, September 07, 2016 08:42 - CONCLUSION: 1. No acute bony abnormalities. Osei Lopez MD Hip and Pelvis X-Ray 09/07/16610 Signed Impressions: Service Date/Time: Wednesday, September 07, 2016 08:33 - CONCLUSION: 1. No acute bony abnormalities. Osteopenia. 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 No evidence of hemorrhage or edema Kenn Moreau MD Femur X-Ray 09/07/16610 Signed Impressions: Service Date/Time: Wednesday, September 07, 2016 08:38 - CONCLUSION: 1. No acute bony abnormalities. Osei Lopez MD Pelvis CT 09/07/16 0000 Signed Impressions: Service Date/Time: Wednesday, September 07, 2016 10:21 - CONCLUSION: 1. No acute fracture. Osteopenia. No dislocation. Moderate osteoarthritis of the bilateral hips. Osei Lopez MD Cervical Spine CT 09/07/16 0000 Signed Impressions: Service Date/Time: Wednesday, September 07, 2016 06:46 - CONCLUSION: Chronic degenerative disease with subluxation at multiple levels. No evidence of acute fracture. Kenn Moreau MD (Annette Cagle) Assessment and Plan Problem List: (1) Arrhythmia (2) Fall (3) possible afib (4) Hypoglycemia (5) Type 2 diabetes mellitus (6) Hypertension (7) Hx of kidney transplant (8) COPD (chronic obstructive pulmonary disease) Assessment and Plan Admit to Dr. Sow 86 year female admitted after fall, hypoglycemia, hx of IDDM on insulin 70/30 and Onglyza. States symptoms ongoing x 3 days, no prior hx of hypoglycemia or falls -Accuchecks, monitor blood glucose AC/HS. Hold Onglyza and insulin 70/30 -Hydrate pt. cautiously-D4 1/2 NS Poss. afib vs ST with PACs, evaluated by Dr. Bah last year, would like to see him again -Consult cardiology -Cardiac telemetry -Continue ASA for now, CHADs VASC 4-5. CT of head shows old lacunar infarcts. Will defer to cardiology for anticoagulation -Check 2D echo Mildly elevated trop. likely sec. to afib/st -serial cardiac enzymes -Cardiology consult S/P fall with right hip and leg pain, no fractures -PT eval and tx Hx of ESRD was on HD, prior renal transplant, stable -Monitor renal function -Resume immunosuppressant agents COPD, stable -Duonebs PRN HTN, stable -Monitor, resume home meds Home medications reviewed, initiated as indicated. SCDs for DVT prophylaxis PPI for GI prophylaxis Plan of care discussed with attending, RN, and pt. Further management of the patient will be dependent on the hospital course. This patient was seen by myself and Dr. Sow, this H/P is written on his behalf. (Annette Cagle) Assessment and Plan pt seen and examined as above labs and rad data reviewed meds reviwed chart reviewed plan of care dw gilberto dw pt ching rn (Catalino Sow MD) Physician Certification 2 Midnight Certification Type: Admission for Inpatient Services Order for Inpatient Services The services are ordered in accordance with Medicare regulations or non- Medicare payer requirements, as applicable. In the case of services not specified as inpatient-only, they are appropriately provided as inpatient services in accordance with the 2-midnight benchmark. Estimated LOS (days): 2 2 days is the estimated time the patient will need to remain in the hospital, assuming treatment plan goals are met and no additional complications. Post-Hospital Plan: Home Health (Annette Cagle) Problem Qualifiers (1) Arrhythmia: (2) Fall: Qualified Code: W19.XXXA - Fall, initial encounter (3) Type 2 diabetes mellitus: (4) Hypertension: Qualified Code: I10 - Essential hypertension (5) COPD (chronic obstructive pulmonary disease): Qualified Code: J44.9 - Chronic obstructive pulmonary disease, unspecified COPD type Annette Cagle Sep 07, 2016 14:20 Catalino Sow MD Sep 07, 2016 19:19
[2016-09-07] MEDS: DEXT 5%-NACL 0.45% 1000 ML INJ 1,000 ML IV SCH (15:49)
[2016-09-07] MEDS ORDERED: RESP: ALBUTEROL 2.5 MG/IPRATROPIUM 0.5 MG NEB (PRN) NEB (16:30)
[2016-09-07] MEDS: ONDANSETRON HCL 4 MG/2 ML VIAL IVP PRN (20:36)
[2016-09-07] MEDS: MYCOPHENOLATE MOFETIL 250 MG CAP PO SCH (21:49)
[2016-09-07] MEDS: TACROLIMUS 1 MG CAP PO SCH (21:50)
[2016-09-07] MEDS: SODIUM CHLORIDE 0.9% FLUSH 5 ML FLUSH FLUSH SCH (22:01)
[2016-09-08] VITALS (7 sets, daily range): BP systolic 143–185; BP diastolic 55–76; PULSE 75–88; RESP 18–22; TEMP 97.8–98.4; O2SAT 92–96
[2016-09-08] MEDS: ACETAMINOPHEN/HYDROcodone 325 MG/5 MG TAB PO PRN ×3 (00:24→21:14)
[2016-09-08] MEDS: DEXT 5%-NACL 0.45% 1000 ML INJ 1,000 ML IV SCH (05:05)
[2016-09-08] MEDS: SODIUM CHLORIDE 0.9% FLUSH 5 ML FLUSH FLUSH SCH ×2 (08:50→21:09)
[2016-09-08] MEDS: predniSONE 5 MG TAB PO SCH (08:50)
[2016-09-08] MEDS: MAGNESIUM OXIDE 400 MG TAB PO SCH (08:50)
[2016-09-08] MEDS: PANTOPRAZOLE SOD 20 MG DELAYED RELEASE TAB PO SCH (08:50)
[2016-09-08] MEDS: MYCOPHENOLATE MOFETIL 250 MG CAP PO SCH ×2 (08:50→21:09)
[2016-09-08] MEDS: TACROLIMUS 1 MG CAP PO SCH ×2 (08:50→21:09)
[2016-09-08] MEDS: ASPIRIN EC 81 MG TABEC PO SCH (08:51)
--- NOTE | 2016-09-08 10:29 | HHI.PR ---
Subjective Remarks sitting up in bed, no dizziness eating okay no cp no sob no palpitations elaborating on what happened at home. States she was laying in bed, and when she turned to left side, she thinks she may have passed out. It was different than the 2 previous nights tele reviewed, Afib, at times HR elevated blood glucose 120s states that at home morning glucose tends to run 80s PO hypoglycemic is a recent new med Objective Objective Results - Vital Signs Date Time Temp Pulse Resp B/P Pulse Ox O2 Delivery O2 Flow Rate FiO2 09/08/16 08:00 98.4 80 18 150/65 96 09/08/16 06:00 150/65 Automatic Cuff 09/08/16 04:13 98.3 77 22 185/73 92 09/07/16 22:57 66 20 160/68 98 09/07/16 21:22 98.5 82 24 189/77 91 09/07/16 21:01 84 20 162/72 98 09/07/16 20:22 79 20 162/69 96 09/07/16 16:33 80 18 162/81 99 Room Air 09/07/16 13:33 80 17 130/95 96 Room Air 09/07/16 12:05 74 17 124/56 96 Room Air 09/07/16 11:17 74 16 146/70 95 Room Air I/O 09/07/16 09/07/16 09/07/16 09/08/16 09/08/16 09/08/16 06:59 14:59 22:59 06:59 14:59 22:59 Intake Total 240 ml 500 ml Output Total 200 ml Balance 240 ml 300 ml Intake Oral 240 ml 0 ml IV Total 500 ml Output Urine Total 200 ml # Voids 2 2 # Bowel Movements 1 0 Result Diagram: 09/07/1661909/07/16619 Imaging Last Impressions Knee X-Ray 09/07/16610 Signed Impressions: Service Date/Time: Wednesday, September 07, 2016 08:42 - CONCLUSION: 1. No acute bony abnormalities. Osei Lopez MD Hip and Pelvis X-Ray 09/07/16610 Signed Impressions: Service Date/Time: Wednesday, September 07, 2016 08:33 - CONCLUSION: 1. No acute bony abnormalities. Osteopenia. 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 No evidence of hemorrhage or edema Kenn Moreau MD Femur X-Ray 09/07/16610 Signed Impressions: Service Date/Time: Wednesday, September 07, 2016 08:38 - CONCLUSION: 1. No acute bony abnormalities. Osei Lopez MD Pelvis CT 09/07/16 0000 Signed Impressions: Service Date/Time: Wednesday, September 07, 2016 10:21 - CONCLUSION: 1. No acute fracture. Osteopenia. No dislocation. Moderate osteoarthritis of the bilateral hips. Osei Lopez MD Cervical Spine CT 09/07/16 Signed Impressions: Service Date/Time: Wednesday, September 07, 2016 06:46 - CONCLUSION: Chronic degenerative disease with subluxation at multiple levels. No evidence of acute fracture. Kenn Moreau MD ROS General: No: Fatigue, Weakness HEENT: No: Sore Throat, Dysphagia Cardiac: No: Chest Pain, Edema, Palpitations Pulmonary: No: Cough, SOB, Wheezing GI: No: Abdominal Pain, BM, Diarrhea, N/V /MANAGER DRIVE: No: Dysuria, Urgency Neuro/MS: No: Lightheaded, Confusion Psych: No: Anxiety, Depression Skin: No: Itching, Rash Physical Exam Physical Exam GENERAL: This is a well-nourished, well-developed patient, in no apparent distress. SKIN: Bruises to both arms, skin tears to forearms HEAD: Atraumatic. Normocephalic. No temporal or scalp tenderness. EYES: Pupils equal round and reactive. Extraocular motions intact. No scleral icterus. No injection or drainage. ENT: Nose without bleeding, purulent drainage or septal hematoma. Throat without erythema, tonsillar hypertrophy or exudate. Uvula midline. Airway patent. NECK: Trachea midline. No JVD or lymphadenopathy. Supple, nontender, no meningeal signs. CARDIOVASCULAR: Irregularly irregular. Without murmurs, gallops, or rubs. RESPIRATORY: Clear to auscultation. Breath sounds equal bilaterally. No wheezes , rales, or rhonchi. GASTROINTESTINAL: Abdomen soft, non-tender, nondistended. No hepato-splenomegaly , or palpable masses. No guarding. MUSCULOSKELETAL: Extremities without clubbing, cyanosis, or edema. No joint tenderness, effusion, or edema noted. No calf tenderness. Negative Homans sign bilaterally. NEUROLOGICAL:Awake, alert, oriented x 3. No focal deficits. Urinary Catheter: No Vascular Central Line Catheter: No A/P Diagnosis: (1) Arrhythmia (2) Fall (3) possible afib (4) Hypoglycemia (5) Type 2 diabetes mellitus (6) Hypertension (7) Hx of kidney transplant (8) COPD (chronic obstructive pulmonary disease) (9) possible syncope Assessment and Plan 86 year female admitted after fall, hypoglycemia, hx of IDDM on insulin 70/30 and Onglyza. States symptoms ongoing x 3 days, no prior hx of hypoglycemia or falls -Accuchecks, monitor blood glucose AC/HS. Hold Onglyza and insulin 70/30. Onglyza is a new med -BGM improving -Hydrate pt. cautiously-D4 1/2 NS -dec. to 30/hr Poss. afib vs ST with PACs, evaluated by Dr. Bah last year, would like to see him again. Tele is noted for afib with elevated HR at times -Consult cardiology-pending -Cardiac telemetry -Continue ASA for now, CHADs VASC 4-5. CT of head shows old lacunar infarcts. Will defer to cardiology for anticoagulation -Check 2D echo-pending Poss. Syncope -cardiology eval pending -Check carotid US -Echo pending Mildly elevated trop. likely sec. to afib/st -Cardiology consult pending -Continue ASA -Check lipid profile and Hgb A1C S/P fall with right hip and leg pain, no fractures -PT eval and tx Hx of ESRD was on HD, prior renal transplant, stable -Monitor renal function -Continue immunosuppressant agents COPD, stable -Duonebs PRN HTN, stable -Continue home meds SCDs for DVT prophylaxis PPI for GI prophylaxis PT eval Card input pending, continue with above tx, hypoglycemia improving. Labs in am D/W RN D/W Dr. Sow D/W pt. This patient was seen by myself and Dr. Sow, this note is written on his behalf. Problem Qualifiers (1) Arrhythmia: (2) Fall: Qualified Code: W19.XXXA - Fall, initial encounter (3) Type 2 diabetes mellitus: (4) Hypertension: Qualified Code: I10 - Essential hypertension (5) COPD (chronic obstructive pulmonary disease): Qualified Code: J44.9 - Chronic obstructive pulmonary disease, unspecified COPD type Annette Cagle Sep 08, 2016 10:29
[2016-09-08] MEDS ORDERED: METOPROLOL TARTRATE 25 MG TAB PO SCH (11:00)
--- NOTE | 2016-09-08 12:56 | RADRPT ---
EXAM DATE/TIME: 09/08/2016 11:42 [facility] COMPARISON: No previous studies available for comparison. INDICATIONS : Syncope. MEDICAL HISTORY : Hypertension. Chronic obstructive pulmonary disease. Gastroesophageal reflux disease. Dyspnea. Ulcer. Renal failure. Arthritis. Diabetes. SURGICAL HISTORY : Cholecystectomy. Appendectomy. Hysterectomy. Eye surgery. Kidney transplant. ENCOUNTER: Initial ACUITY: 1 day PAIN SCORE: 0/10 LOCATION: Bilateral neck PEAK SYSTOLIC VELOCITIES (cm/sec): ICA/CCA RATIO: Right: 1.5 Left: 1.3 ICA: Right: 73 Left: 69 CCA: Right: 49 Left: 69 ECA: Right: 372 Left: 130 VERTEBRAL: Right: Bidirectional flow Left: 124 antegrade Elevated flow velocities and ICA/CCA ratios have been found to correlate with increased degrees of vessel stenosis, calculated as percentage of diameter relative to a normal segment of distal ICA/CCA FINDINGS: RIGHT CAROTID: Patchy eccentric calcific plaquing LEFT CAROTID: Mild eccentric calcific plaquing VERTEBRAL ARTERIES: Bidirectional flow in the right vertebral artery. Antegrade on the left MISCELLANEOUS: None. CONCLUSION: Mild mild-moderate atherosclerotic carotid bifurcation disease bilaterally without definite flow limi ting stenosis. Bidirectional flow in the right vertebral artery suggests proximal or right subclavian stenosis Anil Salomon MD on September 08, 2016 at 12:51 Board Certified Radiologist. This report was verified electronically.
--- NOTE | 2016-09-08 15:54 | PD.CONS ---
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 Patient brought to the hospital after she was found on the floor after fall, was noted hypoglycemic with BS of 36, bleeding from skin tears on both arm. States she could not stand and legs were buckling. Complained of right hip and right leg pain. Pt. states that for the last 3 nights, she woke up to use bathroom and when she stood up and started walking she felt disoriented, and unsteady. On the second night, she could not stand and lost control of bladder in bed, she felt the sheets were heavy on her legs. Last night, she went to bed okay and was found on floor, per sons she appeared confused. Pt. doesn't recall falling. She is a fairly good historian, however, she only remembers seeing her son assisting her. Denies headache, neck pain, paresthesias, numbness. Pt. is a diabetic and takes Novolin 70/30 in am and pm, also on PO hypoglycemic Onglyza. States she has been doing well, appetite has been good, she is very good about taking a nighttime snack after taking insulin. When EMS arrived, her BS was 45. Her family gave her oral glucose and a sandwich. EMS gave her 12.5 g of glucose. Pt. arrived in the ED, stable, alert and oriented x 3. She was tachycardic, possibly MAT. Pt. was seen last year by Dr. Bah during admission for COPD exacerbation for poss. afib and wide complex tach. He believed dysrhythmia was likely brought on by respiratory illness and duonebs and recommended aspirin. Pt. denies palpitations, no cp, no excessive sob. No recent fever, no chills. Has hx of renal transplant and follows up with Dr. Westbrook, renal function is stable, she is compliant with medications. In the ED, she was evaluated, laboratory work up was done. CBC unremarkable. BMP stable. Trop slightly elevated 0.06, no chest pain. BNP was 287. Imaging studies were completed, no fractures. CT of head shows bilat old lacunar strokes , pt. denies any prior history. Pt.'s heart rate stable, EKG reviewed, noted with some PACs, . Pt. admitted for further evaluation and treatment. Past Family Social History Allergies: Coded Allergies: No Known Allergies (Unverified , 09/07/16) Past Medical History as before Past Surgical History non contributing Reported Medications see chart Social History no alcohol no tobacco no drugs Physical Exam Vital Signs Vital Signs Date Time Temp Pulse Resp B/P Pulse Ox O2 Delivery O2 Flow Rate FiO2 09/08/16 12:00 97.8 75 20 143/62 96 09/08/16 09:00 88 09/08/16 08:00 98.4 80 18 150/65 96 09/08/16 06:00 150/65 Automatic Cuff 09/08/16 04:13 98.3 77 22 185/73 92 09/07/16 22:57 66 20 160/68 98 09/07/16 21:22 98.5 82 24 189/77 91 09/07/16 21:01 84 20 162/72 98 09/07/16 20:22 79 20 162/69 96 09/07/16 16:33 80 18 162/81 99 Room Air Physical Exam vitals stable htn pacs heart s1s2 sm2/6 lung clear abdomen and ext free Result Diagram: 09/07/16 0620 09/07/16 0620 Imaging noted Assessment and Plan Problem List: (1) Impaired mobility and activities of daily living (2) Fall (3) COPD (chronic obstructive pulmonary disease) (4) Arrhythmia Assessment and Plan: did not see afib but possible mat now heart rate controlled with sinus with pacs will get cta chest r/o pe increase b vesta (5) Hypertension (6) Type 2 diabetes mellitus (7) possible syncope Problem Qualifiers (1) Fall: Qualified Code: W19.XXXA - Fall, initial encounter (2) COPD (chronic obstructive pulmonary disease): Qualified Code: J44.9 - Chronic obstructive pulmonary disease, unspecified COPD type (3) Arrhythmia: (4) Hypertension: Qualified Code: I10 - Essential hypertension (5) Type 2 diabetes mellitus: Colby James MD Sep 08, 2016 15:53
--- NOTE | 2016-09-08 19:00 | EC ---
Study Study Date:09/08/2016 STUDY CONCLUSIONS SUMMARY - Left ventricle: The cavity size was normal. Wall thickness was normal. Systolic function was normal. The estimated ejection fraction was in the range of 60% to 65%. Wall motion was normal; there were no regional wall motion abnormalities. - Aortic valve: Mild regurgitation. Valve area: 1.67cm^2 (Vmax). - Mitral valve: Calcification. Severe regurgitation. - Tricuspid valve: Mild-moderate regurgitation. - Pulmonary arteries: PA peak pressure: 35mm Hg (S). If LV function is below 40, please consider prescribing an ACEI or ARB or document rationale for non-use. PROCEDURE DATA STUDY STATUS: Elective. Procedure: Transthoracic echocardiography. Image quality was good. Scanning was performed from the parasternal, apical, and subcostal acoustic windows. Study completion: The patient tolerated the procedure well. Transthoracic echocardiography. M-mode, complete 2D, complete spectral Doppler, and color Doppler. Height: Height: 60in. Weight: Weight: 175.6lb. Body mass index: BMI: 34.4kg/m^2. Body surface area: BSA: 1.77m^2. Patient status: Inpatient. CARDIAC ANATOMY LEFT VENTRICLE: The cavity size was normal. Wall thickness was normal. Systolic function was normal. The estimated ejection fraction was in the range of 60% to 65%. Wall motion was normal; there were no regional wall motion abnormalities. AORTIC VALVE: Trileaflet; normal thickness leaflets. Doppler: Transvalvular velocity was within the normal range. There was no stenosis. Mild regurgitation. Valve area: 1.67cm^2 (Vmax). Indexed valve area: 0.94cm^2/m^2 (Vmax). Mean gradient: 10mm Hg (S). Peak gradient: 17mm Hg (S). AORTA: Aortic root: The aortic root was normal in size. MITRAL VALVE: Calcification. Doppler: Transvalvular velocity was within the normal range. There was no evidence for stenosis. Severe regurgitation. Mean gradient: 4mm Hg (D). Peak gradient: 11mm Hg (D). LEFT ATRIUM: The atrium was normal in size. RIGHT VENTRICLE: The cavity size was normal. Wall thickness was normal. PULMONIC VALVE: Doppler: Transvalvular velocity was within the normal range. There was no evidence for stenosis. No regurgitation. TRICUSPID VALVE: Structurally normal valve. Doppler: Transvalvular velocity was within the normal range. Mild-moderate regurgitation. PULMONARY ARTERY: The main pulmonary artery was normal-sized. Systolic pressure was within the normal range. RIGHT ATRIUM: The atrium was normal in size. PERICARDIUM: There was no pericardial effusion. SYSTEMIC VEINS: Inferior vena cava: The vessel was normal in size. Patient weight: 175.6lb _Ejection fraction:_ 65-75% _Fractional shortening:_ 32% up to 5Kg 5-11.5Kg 11.6-22.9Kg 23-45Kg 45-57Kg Aortic Root 7-13 <17 13-22 17-27 17-27 LA diam 6-13 <23 24-38 33-47 37-40 RVID 10-17 7-15 7-15 7-18 8-17 LVIDd 12-22 <32 24-38 33-47 37-40 LVPW 2-4 3-6 5-7 6-8 7-8 IVS 2-4 3-6 5-7 6-8 7-8 BASIC MEASUREMENTS ADULT NORMAL Left ventricle LV internal dimension, ED, chordal *40 mm 43-52 level, PLAX LV internal dimension, ES, chordal 28.6 mm 23-38 level, PLAX Fractional shortening, chordal level, *29 % >29 PLAX LV posterior wall thickness, ED 10.8 mm IVS/LVPW ratio, ED 1.01 <1.3 Ventricular septum Septal thickness, ED 10.9 mm Aortic valve Leaflet separation *14 mm 15-26 BASIC MEASUREMENTS ADULT NORMAL Aortic valve Leaflet separation *14 mm 15-26 Aorta Root diameter, ED 29 mm 20-37 Left atrium Anterior-posterior dimension, ES 30 mm 19-40 Anterior-posterior dimension index, ES 1.69 cm/m^2 <2.2 LA/aortic root ratio 1.03 DOPPLER MEASUREMENTS ADULT NORMAL Main pulmonary artery Pressure, S *35 mm Hg =30 Aortic valve Peak velocity, S 205 cm/s Mean velocity, S 146 cm/s VTI, S 47.9 cm Mean gradient, S 10 mm Hg Peak gradient, S 17 mm Hg Valve area, Vmax 1.67 cm^2 Valve area index, Vmax 0.94 cm^2/m^2 Regurgitant velocity, ED 429 cm/s Regurgitant deceleration 2440 cm/s^2 Regurgitant pressure half-time 516 ms Regurgitant gradient, ED 74 mm Hg Mitral valve Peak E-wave velocity 131 cm/s Peak A-wave velocity 129 cm/s Mean velocity, D 94 cm/s Deceleration time *261 ms 150-230 Mean gradient, D 4 mm Hg Peak gradient, D 11 mm Hg Peak E/A ratio 1 Maximal regurgitant velocity 482 cm/s Tricuspid valve Regurgitant peak velocity 289 cm/s Peak RV-RA gradient, S 33 mm Hg Maximal regurgitant velocity 289 cm/s Systemic veins Estimated CVP 10 mm Hg Right ventricle RV pressure, S *43 mm Hg <30 Pulmonic valve Peak velocity, S 138 cm/s LEGEND: Mean values are shown as u=mean value. Asterisk (*) madrid values outside specified normal range. Prepared and signed by Angel Cabrera [id number]
[2016-09-08] MEDS: METOPROLOL TARTRATE 25 MG TAB PO SCH (21:09)
[2016-09-09] VITALS (7 sets, daily range): BP systolic 108–185; BP diastolic 56–75; PULSE 67–92; RESP 16–20; TEMP 97.5–98.2; O2SAT 94–95
[2016-09-09] MEDS: ACETAMINOPHEN/HYDROcodone 325 MG/5 MG TAB PO PRN ×4 (04:08→17:11)
[2016-09-09] MEDS: DEXT 5%-NACL 0.45% 1000 ML INJ 1,000 ML IV SCH (04:14)
[2016-09-09 07:03] LABS: HEMATOCRIT 33.5 % (35.0-46.0); MEAN CELL VOLUME 84.5 FL (80.0-100.0); MEAN CORPUSCULAR HEMOGLOBIN 27.8 PG (27.0-34.0); MEAN CORPUSCULAR HGB CONC 32.9 % (32.0-36.0); PLATELET COUNT 212 TH/MM3 (150-450); RED BLOOD COUNT 3.96 MIL/MM3 (4.00-5.30); RED CELL DISTRIBUTION WIDTH 16.5 % (11.6-17.2); REVIEW FLAG FINAL; WHITE BLOOD COUNT 7.3 TH/MM3 (4.0-11.0)
[2016-09-09 07:07] LABS: ANION GAP 7 MEQ/L (5-15); BICARBONATE 27.8 MEQ/L (21.0-32.0); BLOOD UREA NITROGEN 17 MG/DL (7-18); CHLORIDE 107 MEQ/L (98-107); GLOMERULAR FILTRATION RATE 76 ML/MIN (>89); HDL CHOLESTEROL 44.4 MG/DL (40.0-60.0); LDL CHOLESTEROL 107 MG/DL (0-99); POTASSIUM 4.4 MEQ/L (3.5-5.1); SODIUM (NA) 142 MEQ/L (136-145)
[2016-09-09] MEDS: SODIUM CHLORIDE 0.9% FLUSH 5 ML FLUSH FLUSH SCH ×2 (09:00→20:34)
[2016-09-09] MEDS: MYCOPHENOLATE MOFETIL 250 MG CAP PO SCH ×2 (09:11→20:35)
[2016-09-09] MEDS: TACROLIMUS 1 MG CAP PO SCH ×2 (09:11→20:36)
[2016-09-09] MEDS: PANTOPRAZOLE SOD 20 MG DELAYED RELEASE TAB PO SCH (09:11)
[2016-09-09] MEDS: ASPIRIN EC 81 MG TABEC PO SCH (09:11)
[2016-09-09] MEDS: MAGNESIUM OXIDE 400 MG TAB PO SCH (09:11)
[2016-09-09] MEDS: METOPROLOL TARTRATE 25 MG TAB PO SCH ×2 (09:11→20:36)
[2016-09-09] MEDS: predniSONE 5 MG TAB PO SCH (09:12)
--- NOTE | 2016-09-09 09:13 | RADRPT ---
EXAM DATE/TIME: 09/09/2016 08:33 [facility] COMPARISON: No previous studies available for comparison. INDICATIONS : Short of breath, evaluate embolus MEDICAL HISTORY : Hypertension. Diabetes mellitus type II. Chronic obstructive pulmonary disease. SURGICAL HISTORY : Appendectomy. Cholecystectomy. Hysterectomy. ENCOUNTER: Subsequent ACUITY: 2 days PAIN SCORE: 0/10 LOCATION: Bilateral chest FINDINGS: A single view of the chest demonstrates the lungs to be symmetrically aerated without evidence of mas s, infiltrate or effusion. Minimal basilar atelectasis. Elevated right hemidiaphragm. The cardiomedi astinal contours are unremarkable. Osseous structures are intact. CONCLUSION: 1. Chronically elevated right hemidiaphragm, stable since 2016. Minimal basal atelectasis. No acute f indings. Osei Lopez MD on September 09, 2016 at 9:07 Board Certified Radiologist. This report was verified electronically.
[2016-09-09 11:37] LABS: HEMOGLOBIN A1a 1.1 %; HEMOGLOBIN A1b 2.3 %; HEMOGLOBIN Ao 81.4 %; HEMOGLOBIN LA1C 2.6 %; HEMOGLOBIN P3 5.4 %
--- NOTE | 2016-09-09 13:12 | HHI.PR ---
Subjective Remarks sitting up in bed, no dizziness eating okay no cp no sob no palpitations blood sugars now coming up 170s tele reviewed, ST, PACs, MAT, PVCs Objective Objective Results - Vital Signs Date Time Temp Pulse Resp B/P Pulse Ox O2 Delivery O2 Flow Rate FiO2 09/09/16 08:46 75 09/09/16 08:00 98.0 73 20 161/70 94 09/09/16 04:00 98.2 72 18 185/75 94 09/09/16 00:00 98.2 92 16 169/71 95 09/08/16 20:44 97.8 76 20 158/76 94 09/08/16 20:07 76 I/O 09/08/16 09/08/16 09/08/16 09/09/16 09/09/16 09/09/16 07:00 15:00 23:00 07:00 15:00 23:00 Intake Total 500 ml 1202 ml 385 ml 422 ml Output Total 200 ml 900 ml 600 ml 400 ml Balance 300 ml 302 ml -215 ml 22 ml Intake Oral 0 ml 720 ml 170 ml 240 ml IV Total 500 ml 482 ml 215 ml 182 ml Output Urine Total 200 ml 900 ml 600 ml 400 ml # Voids 4 # Bowel Movements 0 1 0 0 1 Result Diagram: 09/09/1614 09/09/16613 Imaging Last Impressions Knee X-Ray 09/07/16610 Signed Impressions: Service Date/Time: Wednesday, September 07, 2016 08:42 - CONCLUSION: 1. No acute bony abnormalities. Osei Lopez MD Hip and Pelvis X-Ray 09/07/16610 Signed Impressions: Service Date/Time: Wednesday, September 07, 2016 08:33 - CONCLUSION: 1. No acute bony abnormalities. Osteopenia. 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 No evidence of hemorrhage or edema Kenn Moreau MD Femur X-Ray 09/07/16610 Signed Impressions: Service Date/Time: Wednesday, September 07, 2016 08:38 - CONCLUSION: 1. No acute bony abnormalities. Osei Lopez MD Pelvis CT 09/07/16 0000 Signed Impressions: Service Date/Time: Wednesday, September 07, 2016 10:21 - CONCLUSION: 1. No acute fracture. Osteopenia. No dislocation. Moderate osteoarthritis of the bilateral hips. Osie Lopez MD Cervical Spine CT 09/07/16 0000 Signed Impressions: Service Date/Time: Wednesday, September 07, 2016 06:46 - CONCLUSION: Chronic degenerative disease with subluxation at multiple levels. No evidence of acute fracture. Kenn Moreau MD Other Results Laboratory Tests Test 09/09/16 06:14 White Blood Count 7.3 Red Blood Count 3.96 Hemoglobin 11.0 Hematocrit 33.5 Mean Corpuscular Volume 84.5 Mean Corpuscular Hemoglobin 27.8 Mean Corpuscular Hemoglobin 32.9 Concent Red Cell Distribution Width 16.5 Platelet Count 212 Mean Platelet Volume 7.6 Sodium Level 142 Potassium Level 4.4 Chloride Level 107 Carbon Dioxide Level 27.8 Anion Gap 7 Blood Urea Nitrogen 17 Creatinine 0.73 Estimat Glomerular Filtration 76 Rate Random Glucose 158 Hemoglobin A1c 6.8 Calcium Level 8.0 Triglycerides Level 172 Cholesterol Level 186 LDL Cholesterol 107 HDL Cholesterol 44.4 Cholesterol/HDL Ratio 4.18 ROS General: No: Fatigue, Weakness HEENT: No: Sore Throat, Dysphagia Cardiac: No: Chest Pain, Edema, Palpitations Pulmonary: No: Cough, SOB, Wheezing GI: No: Abdominal Pain, BM, Diarrhea, N/V /LOCK TECHNICIAN: No: Dysuria, Urgency Neuro/MS: No: Lightheaded, Confusion Psych: No: Anxiety, Depression Skin: No: Itching, Rash Physical Exam Physical Exam GENERAL: This is a well-nourished, well-developed patient, in no apparent distress. SKIN: Bruises to both arms, skin tears to forearms HEAD: Atraumatic. Normocephalic. No temporal or scalp tenderness. EYES: Pupils equal round and reactive. Extraocular motions intact. No scleral icterus. No injection or drainage. ENT: Nose without bleeding, purulent drainage or septal hematoma. Throat without erythema, tonsillar hypertrophy or exudate. Uvula midline. Airway patent. NECK: Trachea midline. No JVD or lymphadenopathy. Supple, nontender, no meningeal signs. CARDIOVASCULAR: S1, S2, occ. irregular. Without murmurs, gallops, or rubs. RESPIRATORY: Clear to auscultation. Breath sounds equal bilaterally. No wheezes , rales, or rhonchi. GASTROINTESTINAL: Abdomen soft, non-tender, nondistended. No hepato-splenomegaly , or palpable masses. No guarding. MUSCULOSKELETAL: Extremities without clubbing, cyanosis, or edema. No joint tenderness, effusion, or edema noted. No calf tenderness. Negative Homans sign bilaterally. NEUROLOGICAL:Awake, alert, oriented x 3. No focal deficits. Urinary Catheter: No Vascular Central Line Catheter: No A/P Diagnosis: (1) Arrhythmia (2) Fall (3) possible afib (4) Hypoglycemia (5) Type 2 diabetes mellitus (6) Hypertension (7) Hx of kidney transplant (8) COPD (chronic obstructive pulmonary disease) (9) possible syncope Assessment and Plan 86 year female admitted after fall, hypoglycemia, hx of IDDM on insulin 70/30 and Onglyza. States symptoms ongoing x 3 days, no prior hx of hypoglycemia or falls -Accuchecks, monitor blood glucose AC/HS. Hold Onglyza and insulin 70/30. Onglyza is a new med -BGM improving -DC dextrose -Start low dose insulin Poss. afib vs ST with PACs, evaluated by Dr. Bah last year, would like to see him again. Tele is noted for afib with elevated HR at times -Cardiology input appreciated, Dr. Glover doesn't believe pt is in afib, more MAT. Increased BB and VQ scan ordered -VQ scan to r/o PE ordered, results pending -Cardiac telemetry -Continue ASA for now, CHADs VASC 4-5. CT of head shows old lacunar infarcts. Will defer to cardiology for anticoagulation if afib is confirmed -2D echo-EF 65%, severe mitral regurgitation Poss. Syncope-no further episodes -cardiology evaluating -CUS results noted -Echo done Mildly elevated trop. likely sec. to afib/st -Card input appreciated -Continue ASA -Lipid profile noted, can benefit from statin, wants to check with PCP -Hgb A1C 6.8 S/P fall with right hip and leg pain, no fractures -PT eval and tx Hx of ESRD was on HD, prior renal transplant, stable -Monitor renal function -Continue immunosuppressant agents COPD, stable -Duonebs PRN HTN, has been elevated, not taking meds at home because PCP noted BP was low and took her off meds -not taking anything at home, started on Lopressor yesterday. Needs better controlled. SCDs for DVT prophylaxis PPI for GI prophylaxis PT eval Labs reviewed stable CM for dc planning, HHC/PT, pt. agreeable Poss. dc tomorrow if card clears D/W RN D/W Dr. Sow D/W pt. This patient was seen by myself and Dr. Sow, this note is written on his behalf. Problem Qualifiers (1) Arrhythmia: (2) Fall: Qualified Code: W19.XXXA - Fall, initial encounter (3) Type 2 diabetes mellitus: (4) Hypertension: Qualified Code: I10 - Essential hypertension (5) COPD (chronic obstructive pulmonary disease): Qualified Code: J44.9 - Chronic obstructive pulmonary disease, unspecified COPD type Annette Cagle Sep 09, 2016 13:12
--- NOTE | 2016-09-09 13:19 | HHI.FF ---
Face to Face Verification Diagnosis: (1) Hypoglycemia (2) Arrhythmia (3) Fall (4) possible syncope (5) Impaired mobility and activities of daily living (6) Hx of kidney transplant (7) Type 2 diabetes mellitus (8) Hypertension Physical Therapy Order: Evaluate and Treat Home Health Nursing Order: Medical education Signs/symptoms of disease process Diabetic education Medication education-adverse effect Nursing assessment with vital signs Photo Cartographer Order: To Evaluate: Support services Order: To Provide: Community services I have seen patient Ayse Brewer on 09/09/16. My clinical findings support the need for the requested home health care services because: Need for psychosocial assistance Impaired cognition/judgement High risk of falls I certify that my clinical findings support that this patient is homebound because: Impaired cognitive ability/safety Unsteady gait/balance Unsafe to leave home unassisted Annette Cagle Sep 09, 2016 13:19
--- NOTE | 2016-09-09 13:34 | RADRPT ---
EXAM DATE/TIME: 09/09/2016 09:55 [facility] COMPARISON: CHEST SINGLE AP, September 09, 2016, 8:33. INDICATIONS : Shortness of breath. COPD. DOSE: 8.7 mCi Tc99m MAA IV 1.6 mCi Tc99m DTPA aerosol MEDICAL HISTORY : Chronic obstructive pulmonary disease. Diabetes mellitus type 2. Hypertension. Kidney disease and gas troesophageal reflux. SURGICAL HISTORY : Tubal ligation. Hysterectomy. Cholecystectomy. Right renal transplant, hiatal hernia and appendectom y ENCOUNTER: Initial ACUITY: 3 days PAIN SCALE: 0/10 LOCATION: chest TECHNIQUE: Following five minutes of tidal breathing of DTPA aerosol, planar images of the lungs were performed in eight projections. The patient was then injected with MAA, and eight-view perfusion scan was perf ormed. FINDINGS: There is a homogeneous pattern of aerosol delivery to the periphery of both lungs. No focal ventilat ory defects are seen. The perfusion lung scan demonstrates a homogenous pattern of uptake in both lungs. No segmental or s ubsegmental defects are seen. CONCLUSION: Low probability scan for pulmonary embolism Anil Salomon MD on September 09, 2016 at 13:32 Board Certified Radiologist. This report was verified electronically.
[2016-09-09] MEDS ORDERED: LOSARTAN 50 MG TAB PO ONE (14:45)
--- NOTE | 2016-09-09 14:45 | PD.CARD.PN ---
Subjective Subjective Remarks no cp no syncope Objective Vital Signs / I&O Vital Signs Date Time Temp Pulse Resp B/P Pulse Ox O2 Delivery O2 Flow Rate FiO2 09/09/16 08:46 75 09/09/16 08:00 98.0 73 20 161/70 94 09/09/16 04:00 98.2 72 18 185/75 94 09/09/16 00:00 98.2 92 16 169/71 95 09/08/16 20:44 97.8 76 20 158/76 94 09/08/16 20:07 76 I/O 09/08/16 09/08/16 09/08/16 09/09/16 09/09/16 09/09/16 07:00 15:00 23:00 07:00 15:00 23:00 Intake Total 500 ml 1202 ml 385 ml 422 ml Output Total 200 ml 900 ml 600 ml 400 ml Balance 300 ml 302 ml -215 ml 22 ml Intake Oral 0 ml 720 ml 170 ml 240 ml IV Total 500 ml 482 ml 215 ml 182 ml Output Urine Total 200 ml 900 ml 600 ml 400 ml # Voids 4 # Bowel Movements 0 1 0 0 1 Physical Exam heart s1s2 sm2/6 lung clear abdomen and ext free Laboratory Laboratory Tests Test 09/09/16 06:14 White Blood Count 7.3 TH/MM3 Red Blood Count 3.96 MIL/MM3 Hemoglobin 11.0 GM/DL Hematocrit 33.5 % Mean Corpuscular Volume 84.5 FL Mean Corpuscular Hemoglobin 27.8 PG Mean Corpuscular Hemoglobin 32.9 % Concent Red Cell Distribution Width 16.5 % Platelet Count 212 TH/MM3 Mean Platelet Volume 7.6 FL Sodium Level 142 MEQ/L Potassium Level 4.4 MEQ/L Chloride Level 107 MEQ/L Carbon Dioxide Level 27.8 MEQ/L Anion Gap 7 MEQ/L Blood Urea Nitrogen 17 MG/DL Creatinine 0.73 MG/DL Estimat Glomerular Filtration 76 ML/MIN Rate Random Glucose 158 MG/DL Hemoglobin A1c 6.8 % Calcium Level 8.0 MG/DL Triglycerides Level 172 MG/DL Cholesterol Level 186 MG/DL LDL Cholesterol 107 MG/DL HDL Cholesterol 44.4 MG/DL Cholesterol/HDL Ratio 4.18 RATIO Imaging echo and scan and lab noted Assessment and Plan Problem List: (1) Impaired mobility and activities of daily living (2) Fall (3) COPD (chronic obstructive pulmonary disease) (4) Arrhythmia (5) Hypertension Assessment and Plan: bp elevated will add losartan echo and vq scan noted call if needed thx (6) Type 2 diabetes mellitus (7) possible syncope Problem Qualifiers (1) Fall: Qualified Code: W19.XXXA - Fall, initial encounter (2) COPD (chronic obstructive pulmonary disease): Qualified Code: J44.9 - Chronic obstructive pulmonary disease, unspecified COPD type (3) Arrhythmia: (4) Hypertension: Qualified Code: I10 - Essential hypertension (5) Type 2 diabetes mellitus: Colby James MD Sep 09, 2016 14:45
--- NOTE | 2016-09-09 14:50 | PD.CARD.PN ---
Objective Vital Signs / I&O Vital Signs Date Time Temp Pulse Resp B/P Pulse Ox O2 Delivery O2 Flow Rate FiO2 09/09/16 08:46 75 09/09/16 08:00 98.0 73 20 161/70 94 09/09/16 04:00 98.2 72 18 185/75 94 09/09/16 00:00 98.2 92 16 169/71 95 09/08/16 20:44 97.8 76 20 158/76 94 09/08/16 20:07 76 I/O 09/08/16 09/08/16 09/08/16 09/09/16 09/09/16 09/09/16 07:00 15:00 23:00 07:00 15:00 23:00 Intake Total 500 ml 1202 ml 385 ml 422 ml Output Total 200 ml 900 ml 600 ml 400 ml Balance 300 ml 302 ml -215 ml 22 ml Intake Oral 0 ml 720 ml 170 ml 240 ml IV Total 500 ml 482 ml 215 ml 182 ml Output Urine Total 200 ml 900 ml 600 ml 400 ml # Voids 4 # Bowel Movements 0 1 0 0 1 Physical Exam heart s1s2 sm2/6 lung clear abdomen and ext free Laboratory Laboratory Tests Test 09/09/16 06:14 White Blood Count 7.3 TH/MM3 Red Blood Count 3.96 MIL/MM3 Hemoglobin 11.0 GM/DL Hematocrit 33.5 % Mean Corpuscular Volume 84.5 FL Mean Corpuscular Hemoglobin 27.8 PG Mean Corpuscular Hemoglobin 32.9 % Concent Red Cell Distribution Width 16.5 % Platelet Count 212 TH/MM3 Mean Platelet Volume 7.6 FL Sodium Level 142 MEQ/L Potassium Level 4.4 MEQ/L Chloride Level 107 MEQ/L Carbon Dioxide Level 27.8 MEQ/L Anion Gap 7 MEQ/L Blood Urea Nitrogen 17 MG/DL Creatinine 0.73 MG/DL Estimat Glomerular Filtration 76 ML/MIN Rate Random Glucose 158 MG/DL Hemoglobin A1c 6.8 % Calcium Level 8.0 MG/DL Triglycerides Level 172 MG/DL Cholesterol Level 186 MG/DL LDL Cholesterol 107 MG/DL HDL Cholesterol 44.4 MG/DL Cholesterol/HDL Ratio 4.18 RATIO Assessment and Plan Problem List: (1) Impaired mobility and activities of daily living (2) Fall (3) COPD (chronic obstructive pulmonary disease) (4) Arrhythmia Assessment and Plan: mitral valve comments noted will get surgical opinion if patient to go to surgery will need heart cath before (5) Hypertension (6) Type 2 diabetes mellitus (7) possible syncope Problem Qualifiers (1) Fall: Qualified Code: W19.XXXA - Fall, initial encounter (2) COPD (chronic obstructive pulmonary disease): Qualified Code: J44.9 - Chronic obstructive pulmonary disease, unspecified COPD type (3) Arrhythmia: (4) Hypertension: Qualified Code: I10 - Essential hypertension (5) Type 2 diabetes mellitus: Colby James MD Sep 09, 2016 14:50
[2016-09-09] MEDS: INSULIN ASPART SUPPLEMENTAL SCALE SQ SCH ×2 (17:08→20:37)
[2016-09-10] VITALS: BP 117/55; PULSE 67; RESP 18; TEMP 98.2; O2SAT 95
[2016-09-10 04:00] VITALS: BP 170/74; PULSE 68; RESP 17; TEMP 98.4; O2SAT 94
[2016-09-10] MEDS: INSULIN ASPART SUPPLEMENTAL SCALE SQ SCH ×4 (05:58→20:31)
[2016-09-10 08:00] VITALS: BP 205/75; PULSE 69; PULSE 75; RESP 20; TEMP 97.9; O2SAT 95
[2016-09-10] MEDS: PANTOPRAZOLE SOD 20 MG DELAYED RELEASE TAB PO SCH (08:00)
[2016-09-10] MEDS: METOPROLOL TARTRATE 25 MG TAB PO SCH ×2 (08:00→20:21)
[2016-09-10] MEDS: MAGNESIUM OXIDE 400 MG TAB PO SCH (08:00)
[2016-09-10] MEDS: TACROLIMUS 1 MG CAP PO SCH ×2 (08:01→20:21)
[2016-09-10] MEDS: MYCOPHENOLATE MOFETIL 250 MG CAP PO SCH ×2 (08:01→20:21)
[2016-09-10] MEDS: predniSONE 5 MG TAB PO SCH (08:01)
[2016-09-10] MEDS: ASPIRIN EC 81 MG TABEC PO SCH (08:01)
[2016-09-10] MEDS: SODIUM CHLORIDE 0.9% FLUSH 5 ML FLUSH FLUSH SCH ×2 (08:02→20:21)
[2016-09-10] MEDS: ACETAMINOPHEN/HYDROcodone 325 MG/5 MG TAB PO PRN ×2 (08:08→20:27)
[2016-09-10 12:00] VITALS: BP 181/77; PULSE 67; RESP 20; TEMP 96.8; O2SAT 95
--- NOTE | 2016-09-10 13:23 | HHI.PR ---
Subjective Remarks sitting up in chair enjoying her lunch, no dizziness eating okay no cp no sob no palpitations blood sugars now coming up 170s tele reviewed, ST, PACs, MAT, PVCs Review of system for 10 point system otherwise unremarkable Objective Objective Results - Vital Signs Date Time Temp Pulse Resp B/P Pulse Ox O2 Delivery O2 Flow Rate FiO2 09/10/16 12:00 96.8 67 20 181/77 95 09/10/16 08:00 97.9 69 20 205/75 95 09/10/16 04:00 98.4 68 17 170/74 94 09/10/16 00:00 98.2 67 18 117/55 95 09/09/16 20:17 67 09/09/16 20:00 97.5 74 17 108/56 94 09/09/16 16:00 97.5 71 20 182/74 95 I/O 09/09/16 09/09/16 09/09/16 09/10/16 09/10/16 09/10/16 07:00 15:00 23:00 07:00 15:00 23:00 Intake Total 422 ml 480 ml 122 ml 122 ml Output Total 400 ml 300 ml 200 ml 250 ml Balance 22 ml 180 ml -78 ml -128 ml Intake Oral 240 ml 480 ml 120 ml 120 ml IV Total 182 ml 2 ml 2 ml Output Urine Total 400 ml 300 ml 200 ml 250 ml # Bowel Movements 0 2 Result Diagram: 09/09/1614 09/09/16613 Imaging Last Impressions Knee X-Ray 09/07/16610 Signed Impressions: Service Date/Time: Wednesday, September 07, 2016 08:42 - CONCLUSION: 1. No acute bony abnormalities. Osei Lopez MD Hip and Pelvis X-Ray 09/07/16610 Signed Impressions: Service Date/Time: Wednesday, September 07, 2016 08:33 - CONCLUSION: 1. No acute bony abnormalities. Osteopenia. 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 No evidence of hemorrhage or edema Kenn Moreau MD Femur X-Ray 09/07/16610 Signed Impressions: Service Date/Time: Wednesday, September 07, 2016 08:38 - CONCLUSION: 1. No acute bony abnormalities. Osei Lopez MD Pelvis CT 09/07/16 0000 Signed Impressions: Service Date/Time: Wednesday, September 07, 2016 10:21 - CONCLUSION: 1. No acute fracture. Osteopenia. No dislocation. Moderate osteoarthritis of the bilateral hips. Osei Lopez MD Cervical Spine CT 09/07/16 0000 Signed Impressions: Service Date/Time: Wednesday, September 07, 2016 06:46 - CONCLUSION: Chronic degenerative disease with subluxation at multiple levels. No evidence of acute fracture. Kenn Moreau MD Physical Exam Physical Exam GENERAL: This is a well-nourished, well-developed patient, in no apparent distress. SKIN: Bruises to both arms, skin tears to forearms HEAD: Atraumatic. Normocephalic. No temporal or scalp tenderness. EYES: Pupils equal round and reactive. Extraocular motions intact. No scleral icterus. No injection or drainage. ENT: Nose without bleeding, purulent drainage or septal hematoma. Throat without erythema, tonsillar hypertrophy or exudate. Uvula midline. Airway patent. NECK: Trachea midline. No JVD or lymphadenopathy. Supple, nontender, no meningeal signs. CARDIOVASCULAR: S1, S2, occ. irregular. Without murmurs, gallops, or rubs. RESPIRATORY: Clear to auscultation. Breath sounds equal bilaterally. No wheezes , rales, or rhonchi. GASTROINTESTINAL: Abdomen soft, non-tender, nondistended. No hepato-splenomegaly , or palpable masses. No guarding. MUSCULOSKELETAL: Extremities without clubbing, cyanosis, or edema. No joint tenderness, effusion, or edema noted. No calf tenderness. Negative Homans sign bilaterally. NEUROLOGICAL:Awake, alert, oriented x 3. No focal deficits. Urinary Catheter: No Vascular Central Line Catheter: No A/P Assessment and Plan (1) Arrhythmia (2) Fall (3) possible afib (4) Hypoglycemia (5) Type 2 diabetes mellitus (6) Hypertension (7) Hx of kidney transplant (8) COPD (chronic obstructive pulmonary disease) (9) possible syncope Plan 86 year female admitted after fall, hypoglycemia, hx of IDDM on insulin 70/30 and Onglyza. States symptoms ongoing x 3 days, no prior hx of hypoglycemia or falls -Accuchecks, monitor blood glucose AC/HS. Hold Onglyza and insulin 70/30. Onglyza is a new med -BGM improving now going up -DC dextrose -Started on low dose insulin will monitor Poss. afib vs ST with PACs, evaluated by Dr. Bah last year, would like to see him again. Tele is noted for afib with elevated HR at times -Cardiology input appreciated, Dr. Glover doesn't believe pt is in afib, more MAT. Increased BB and VQ scan ordered -VQ scan to r/o PE ordered, low probability -Cardiac telemetry -Continue ASA for now, CHADs VASC 4-5. CT of head shows old lacunar infarcts. Will defer to cardiology for anticoagulation if afib is confirmed -2D echo-EF 65%, severe mitral regurgitation. Awaiting for cardiothoracic input Poss. Syncope-no further episodes -cardiology evaluating -CUS results noted -Echo done Mildly elevated trop. likely sec. to afib/st -Card input appreciated -Continue ASA -Lipid profile noted, can benefit from statin, wants to check with PCP -Hgb A1C 6.8 S/P fall with right hip and leg pain, no fractures -PT eval and tx Hx of ESRD was on HD, prior renal transplant, stable -Monitor renal function -Continue immunosuppressant agents COPD, stable -Duonebs PRN HTN, has been elevated, not taking meds at home because PCP noted BP was low and took her off meds -not taking anything at home, started on Lopressor yesterday. Needs better controlled. SCDs for DVT prophylaxis PPI for GI prophylaxis PT eval Labs reviewed stable CM for dc planning, HHC/PT, pt. agreeable Poss. dc when cleared by cardiology and cardiothoracic surgeon if card clears D/W RN D/W pt. Catalino Sow MD Sep 10, 2016 13:23
[2016-09-10 16:00] VITALS: BP 197/76; PULSE 68; RESP 20; TEMP 97.2; O2SAT 97
[2016-09-10 20:00] VITALS: BP 181/76; PULSE 66; PULSE 68; RESP 17; TEMP 97.6; O2SAT 94
[2016-09-11] VITALS (7 sets, daily range): BP systolic 143–185; BP diastolic 67–76; PULSE 61–85; RESP 17–20; TEMP 97.6–98.9; O2SAT 94–98
[2016-09-11] MEDS: INSULIN ASPART SUPPLEMENTAL SCALE SQ SCH ×4 (06:17→20:28)
[2016-09-11] MEDS: ACETAMINOPHEN/HYDROcodone 325 MG/5 MG TAB PO PRN ×3 (06:17→20:27)
[2016-09-11] MEDS: MYCOPHENOLATE MOFETIL 250 MG CAP PO SCH ×2 (08:03→20:26)
[2016-09-11] MEDS: TACROLIMUS 1 MG CAP PO SCH ×2 (08:03→20:27)
[2016-09-11] MEDS: METOPROLOL TARTRATE 25 MG TAB PO SCH ×2 (10:20→20:26)
[2016-09-11] MEDS: ASPIRIN EC 81 MG TABEC PO SCH (10:20)
[2016-09-11] MEDS: MAGNESIUM OXIDE 400 MG TAB PO SCH (10:20)
[2016-09-11] MEDS: PANTOPRAZOLE SOD 20 MG DELAYED RELEASE TAB PO SCH (10:20)
[2016-09-11] MEDS: predniSONE 5 MG TAB PO SCH (10:20)
[2016-09-11] MEDS: SODIUM CHLORIDE 0.9% FLUSH 5 ML FLUSH FLUSH SCH ×2 (10:22→20:28)
--- NOTE | 2016-09-11 11:21 | PD.CAR.PN ---
CVT Progress Note Subjective/Hospital Course: 86 y/o female presents s/p fall. She does have new onset AFIB. During her evaluation, she was found to have severe MR on echo. She denies chest pain, PND , orthopnea. No prior h/o CHF. Objective: Vital Signs Date Time Temp Pulse Resp B/P Pulse Ox O2 Delivery O2 Flow Rate FiO2 09/11/16 08:00 97.7 68 20 150/67 98 09/11/16 04:00 97.7 75 17 169/73 94 09/11/16 00:00 Room Air 09/11/16 00:00 97.9 61 18 143/67 97 09/10/16 20:00 97.6 68 17 181/76 94 09/10/16 20:00 66 09/10/16 16:00 97.2 68 20 197/76 97 09/10/16 12:00 96.8 67 20 181/77 95 Result Diagram: 09/09/16 0614 09/09/16 0614 Imaging: Last Impressions Lung Scan-V Nuclear Medicine 09/09/16 0000 Signed Impressions: Service Date/Time: Friday, September 09, 2016 09:55 - CONCLUSION: Low probability scan for pulmonary embolism Anil Salomon MD Chest X-Ray 09/09/16 0000 Signed Impressions: Service Date/Time: Friday, September 09, 2016 08:33 - CONCLUSION: 1. Chronically elevated right hemidiaphragm, stable since 2016. Minimal basal atelectasis. No acute findings. Osei Lopez MD Carotid Artery Ultrasound 09/08/16 0000 Signed Impressions: Service Date/Time: September 11:42 - CONCLUSION: Mild mild-moderate atherosclerotic carotid bifurcation disease bilaterally without definite flow limiting stenosis. Bidirectional flow in the right vertebral artery suggests proximal or right subclavian stenosis Anil Salomon MD Knee X-Ray 09/07/16 0611 Signed Impressions: Service Date/Time: Wednesday, September 07, 2016 08:42 - CONCLUSION: 1. No acute bony abnormalities. Osei Lopez MD Hip and Pelvis X-Ray 09/07/16 0611 Signed Impressions: Service Date/Time: Wednesday, September 07, 2016 08:33 - CONCLUSION: 1. No acute bony abnormalities. Osteopenia. 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 No evidence of hemorrhage or edema Kenn Moreau MD Femur X-Ray 09/07/16610 Signed Impressions: Service Date/Time: Wednesday, September 07, 2016 08:38 - CONCLUSION: 1. No acute bony abnormalities. Osei Lopez MD Pelvis CT 09/07/16 Signed Impressions: Service Date/Time: Wednesday, September 07, 2016 10:21 - CONCLUSION: 1. No acute fracture. Osteopenia. No dislocation. Moderate osteoarthritis of the bilateral hips. Osei Lopez MD Cervical Spine CT 09/07/16 Signed Impressions: Service Date/Time: Wednesday, September 07, 2016 06:46 - CONCLUSION: Chronic degenerative disease with subluxation at multiple levels. No evidence of acute fracture. Kenn Moreau MD Cardiovascular: IRR, 2/6 H[facility] Telemetry: AFIB Pulmonary: Few crackles bilat GI/: NABS, NT Plan: 86y/o female with numerous comorbidities and limited mobility found to have recent onset AFIB and severe MR. She appear to be rather frail and would not likely benefit from surgical intervention. Recommend Cardiology follow-up and medical therapy for this issue. (1) Impaired mobility and activities of daily living (2) Fall (3) COPD (chronic obstructive pulmonary disease) (4) Arrhythmia Plan: mitral valve comments noted will get surgical opinion if patient to go to surgery will need heart cath before (5) Hypertension (6) Type 2 diabetes mellitus (7) possible syncope Problem Qualifiers (1) Fall: Qualified Code: W19.XXXA - Fall, initial encounter (2) COPD (chronic obstructive pulmonary disease): Qualified Code: J44.9 - Chronic obstructive pulmonary disease, unspecified COPD type (3) Arrhythmia: (4) Hypertension: Qualified Code: I10 - Essential hypertension (5) Type 2 diabetes mellitus: Jeanie Joseph MD Sep 11, 2016 11:21
--- NOTE | 2016-09-11 17:16 | HHI.PR ---
Subjective Remarks sitting up in chair enjoying her lunch, no dizziness eating okay no cp no sob no palpitations blood sugars now coming up 170s tele reviewed, ST, PACs, MAT, PVCs Review of system for 10 point system otherwise unremarkable Objective Objective Results - Vital Signs Date Time Temp Pulse Resp B/P Pulse Ox O2 Delivery O2 Flow Rate FiO2 09/11/16 16:00 98.9 75 20 160/71 94 09/11/16 12:00 97.6 72 18 185/76 94 09/11/16 08:00 97.7 68 20 150/67 98 09/11/16 04:00 97.7 75 17 169/73 94 09/11/16 00:00 Room Air 09/11/16 00:00 97.9 61 18 143/67 97 09/10/16 20:00 97.6 68 17 181/76 94 09/10/16 20:00 66 I/O 09/10/16 09/10/16 09/10/16 09/11/16 09/11/16 09/11/16 07:00 15:00 23:00 07:00 15:00 23:00 Intake Total 122 ml 720 ml 360 ml 100 ml 480 ml Output Total 250 ml Balance -128 ml 720 ml 360 ml 100 ml 480 ml Intake Oral 120 ml 720 ml 360 ml 100 ml 480 ml IV Total 2 ml Output Urine Total 250 ml # Voids 2 2 3 4 # Bowel Movements 1 1 0 1 Result Diagram: 09/09/1661309/09/16613 Imaging Last Impressions Knee X-Ray 09/07/16610 Signed Impressions: Service Date/Time: Wednesday, September 07, 2016 08:42 - CONCLUSION: 1. No acute bony abnormalities. Osei Lopez MD Hip and Pelvis X-Ray 09/07/16610 Signed Impressions: Service Date/Time: Wednesday, September 07, 2016 08:33 - CONCLUSION: 1. No acute bony abnormalities. Osteopenia. 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 No evidence of hemorrhage or edema Kenn Moreau MD Femur X-Ray 09/07/16610 Signed Impressions: Service Date/Time: Wednesday, September 07, 2016 08:38 - CONCLUSION: 1. No acute bony abnormalities. Osei Lopez MD Pelvis CT 09/07/16 0000 Signed Impressions: Service Date/Time: Wednesday, September 07, 2016 10:21 - CONCLUSION: 1. No acute fracture. Osteopenia. No dislocation. Moderate osteoarthritis of the bilateral hips. Osei Lopez MD Cervical Spine CT 09/07/16 0000 Signed Impressions: Service Date/Time: Wednesday, September 07, 2016 06:46 - CONCLUSION: Chronic degenerative disease with subluxation at multiple levels. No evidence of acute fracture. Kenn Moreau MD Physical Exam Physical Exam GENERAL: This is a well-nourished, well-developed patient, in no apparent distress. SKIN: Bruises to both arms, skin tears to forearms HEAD: Atraumatic. Normocephalic. No temporal or scalp tenderness. EYES: Pupils equal round and reactive. Extraocular motions intact. No scleral icterus. No injection or drainage. ENT: Nose without bleeding, purulent drainage or septal hematoma. Throat without erythema, tonsillar hypertrophy or exudate. Uvula midline. Airway patent. NECK: Trachea midline. No JVD or lymphadenopathy. Supple, nontender, no meningeal signs. CARDIOVASCULAR: S1, S2, occ. irregular. Without murmurs, gallops, or rubs. RESPIRATORY: Clear to auscultation. Breath sounds equal bilaterally. No wheezes , rales, or rhonchi. GASTROINTESTINAL: Abdomen soft, non-tender, nondistended. No hepato-splenomegaly , or palpable masses. No guarding. MUSCULOSKELETAL: Extremities without clubbing, cyanosis, or edema. No joint tenderness, effusion, or edema noted. No calf tenderness. Negative Homans sign bilaterally. NEUROLOGICAL:Awake, alert, oriented x 3. No focal deficits. Urinary Catheter: No Vascular Central Line Catheter: No A/P Assessment and Plan (1) Arrhythmia (2) Fall (3) possible afib (4) Hypoglycemia (5) Type 2 diabetes mellitus (6) Hypertension (7) Hx of kidney transplant (8) COPD (chronic obstructive pulmonary disease) (9) possible syncope Plan 86 year female admitted after fall, hypoglycemia, hx of IDDM on insulin 70/30 and Onglyza. States symptoms ongoing x 3 days, no prior hx of hypoglycemia or falls -Accuchecks, monitor blood glucose AC/HS. Hold Onglyza and insulin 70/30. Onglyza is a new med -BGM improving now going up -DC dextrose -Started on low dose insulin will monitor Poss. afib vs ST with PACs, evaluated by Dr. Bah last year, would like to see him again. Tele is noted for afib with elevated HR at times -Cardiology input appreciated, Dr. Glover doesn't believe pt is in afib, more MAT. Increased BB and VQ scan ordered -VQ scan to r/o PE ordered, low probability -Cardiac telemetry -Continue ASA for now, CHADs VASC 4-5. CT of head shows old lacunar infarcts. Will defer to cardiology for anticoagulation if afib is confirmed -2D echo-EF 65%, severe mitral regurgitation. James cardiothoracic input Poss. Syncope-no further episodes -cardiology evaluating -CUS results noted -Echo done Mildly elevated trop. likely sec. to afib/st -Card input appreciated -Continue ASA -Lipid profile noted, can benefit from statin, wants to check with PCP -Hgb A1C 6.8 S/P fall with right hip and leg pain, no fractures -PT eval and tx Hx of ESRD was on HD, prior renal transplant, stable -Monitor renal function -Continue immunosuppressant agents COPD, stable -Duonebs PRN HTN, has been elevated, not taking meds at home because PCP noted BP was low and took her off meds -not taking anything at home, started on Lopressor yesterday. Needs better controlled. SCDs for DVT prophylaxis PPI for GI prophylaxis PT eval Labs reviewed stable CM for dc planning, HHC/PT, pt. agreeable Poss. dc tomorros as cardiothoracic surgeon recommnending med therapy D/W RN D/W pt. Catalino Sow MD Sep 11, 2016 17:16
[2016-09-12 00:17] VITALS: BP 152/70; PULSE 63; RESP 18; TEMP 97.8; O2SAT 95
[2016-09-12] MEDS: INSULIN ASPART SUPPLEMENTAL SCALE SQ SCH ×2 (05:44→12:59)
[2016-09-12 05:47] VITALS: BP 140/70; PULSE 65; RESP 18; TEMP 98.2; O2SAT 98
[2016-09-12 08:00] VITALS: BP 189/79; PULSE 67; PULSE 75; RESP 20; TEMP 97.9; O2SAT 96
[2016-09-12] MEDS: ACETAMINOPHEN/HYDROcodone 325 MG/5 MG TAB PO PRN ×2 (08:56→15:12)
[2016-09-12] MEDS: predniSONE 5 MG TAB PO SCH (08:57)
[2016-09-12] MEDS: MAGNESIUM OXIDE 400 MG TAB PO SCH (08:58)
[2016-09-12] MEDS: PANTOPRAZOLE SOD 20 MG DELAYED RELEASE TAB PO SCH (08:58)
[2016-09-12] MEDS: METOPROLOL TARTRATE 25 MG TAB PO SCH (08:58)
[2016-09-12] MEDS: ASPIRIN EC 81 MG TABEC PO SCH (08:58)
--- NOTE | 2016-09-12 09:00 | HHI.PR ---
Subjective Remarks sitting up in bed, no dizziness eating okay no cp no sob no palpitations blood sugars now coming up 170s tele reviewed, ST, PACs, MAT, PVCs Objective Objective Results - Vital Signs Date Time Temp Pulse Resp B/P Pulse Ox O2 Delivery O2 Flow Rate FiO2 09/12/16 05:47 98.2 65 18 140/70 98 09/12/16 00:17 97.8 63 18 152/70 95 09/11/16 20:39 97.8 67 20 156/69 97 09/11/16 20:36 66 09/11/16 19:49 Room Air 09/11/16 16:00 98.9 75 20 160/71 94 09/11/16 12:00 97.6 72 18 185/76 94 I/O 09/11/16 09/11/16 09/11/16 09/12/16 09/12/16 09/12/16 07:00 15:00 23:00 07:00 15:00 23:00 Intake Total 100 ml 480 ml Balance 100 ml 480 ml Intake Oral 100 ml 480 ml # Voids 3 4 3 3 # Bowel Movements 0 1 1 0 Result Diagram: 09/09/1661309/09/16613 Imaging Last Impressions Knee X-Ray 09/07/16610 Signed Impressions: Service Date/Time: Wednesday, September 07, 2016 08:42 - CONCLUSION: 1. No acute bony abnormalities. Osei Lopez MD Hip and Pelvis X-Ray 09/07/16610 Signed Impressions: Service Date/Time: Wednesday, September 07, 2016 08:33 - CONCLUSION: 1. No acute bony abnormalities. Osteopenia. 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 No evidence of hemorrhage or edema Kenn Moreau MD Femur X-Ray 09/07/16610 Signed Impressions: Service Date/Time: Wednesday, September 07, 2016 08:38 - CONCLUSION: 1. No acute bony abnormalities. Osei Lopez MD Pelvis CT 09/07/16 0000 Signed Impressions: Service Date/Time: Wednesday, September 07, 2016 10:21 - CONCLUSION: 1. No acute fracture. Osteopenia. No dislocation. Moderate osteoarthritis of the bilateral hips. Osei Lopez MD Cervical Spine CT 09/07/16 0000 Signed Impressions: Service Date/Time: Wednesday, September 07, 2016 06:46 - CONCLUSION: Chronic degenerative disease with subluxation at multiple levels. No evidence of acute fracture. Kenn Moreau MD Physical Exam Physical Exam GENERAL: This is a well-nourished, well-developed patient, in no apparent distress. SKIN: Bruises to both arms, skin tears to forearms HEAD: Atraumatic. Normocephalic. No temporal or scalp tenderness. EYES: Pupils equal round and reactive. Extraocular motions intact. No scleral icterus. No injection or drainage. ENT: Nose without bleeding, purulent drainage or septal hematoma. Throat without erythema, tonsillar hypertrophy or exudate. Uvula midline. Airway patent. NECK: Trachea midline. No JVD or lymphadenopathy. Supple, nontender, no meningeal signs. CARDIOVASCULAR: S1, S2, occ. irregular. Without murmurs, gallops, or rubs. RESPIRATORY: Clear to auscultation. Breath sounds equal bilaterally. No wheezes , rales, or rhonchi. GASTROINTESTINAL: Abdomen soft, non-tender, nondistended. No hepato-splenomegaly , or palpable masses. No guarding. MUSCULOSKELETAL: Extremities without clubbing, cyanosis, or edema. No joint tenderness, effusion, or edema noted. No calf tenderness. Negative Homans sign bilaterally. NEUROLOGICAL:Awake, alert, oriented x 3. No focal deficits. A/P Diagnosis: (1) Arrhythmia (2) Fall (3) possible afib (4) Hypoglycemia (5) Type 2 diabetes mellitus (6) Hypertension (7) Hx of kidney transplant (8) COPD (chronic obstructive pulmonary disease) (9) possible syncope Assessment and Plan 86 year female admitted after fall, hypoglycemia, hx of IDDM on insulin 70/30 and Onglyza. States symptoms ongoing x 3 days, no prior hx of hypoglycemia or falls -Accuchecks, monitor blood glucose AC/HS. Hold Onglyza and insulin 70/30. Onglyza is a new med -BGM improving -DC dextrose -Start low dose insulin Poss. afib vs ST with PACs, evaluated by Dr. Bah last year, would like to see him again. Tele is noted for afib with elevated HR at times -Cardiology input appreciated, Dr. Glover doesn't believe pt is in afib, more MAT. Increased BB and VQ scan ordered -VQ scan to r/o PE ordered, results pending -Cardiac telemetry -Continue ASA for now, CHADs VASC 4-5. CT of head shows old lacunar infarcts. Will defer to cardiology for anticoagulation if afib is confirmed -2D echo-EF 65%, severe mitral regurgitation Poss. Syncope-no further episodes -cardiology evaluating -CUS results noted -Echo done Mildly elevated trop. likely sec. to afib/st -Card input appreciated -Continue ASA -Lipid profile noted, can benefit from statin, wants to check with PCP -Hgb A1C 6.8 S/P fall with right hip and leg pain, no fractures -PT eval and tx Hx of ESRD was on HD, prior renal transplant, stable -Monitor renal function -Continue immunosuppressant agents COPD, stable -Duonebs PRN HTN, has been elevated, not taking meds at home because PCP noted BP was low and took her off meds -not taking anything at home, started on Lopressor yesterday. Needs better controlled. SCDs for DVT prophylaxis PPI for GI prophylaxis PT eval Labs reviewed stable CM for dc planning, HHC/PT, pt. agreeable Poss. dc tomorrow if card clears D/W RN D/W Dr. Sow D/W pt. This patient was seen by myself and Dr. Sow, this note is written on his behalf. Problem Qualifiers (1) Arrhythmia: (2) Fall: Qualified Code: W19.XXXA - Fall, initial encounter (3) Type 2 diabetes mellitus: (4) Hypertension: Qualified Code: I10 - Essential hypertension (5) COPD (chronic obstructive pulmonary disease): Qualified Code: J44.9 - Chronic obstructive pulmonary disease, unspecified COPD type Annette Cagle Sep 12, 2016 08:59
[2016-09-12] MEDS: ONDANSETRON HCL 4 MG/2 ML VIAL IVP PRN (09:01)
[2016-09-12] MEDS: SODIUM CHLORIDE 0.9% FLUSH 5 ML FLUSH FLUSH SCH (09:02)
--- NOTE | 2016-09-12 09:10 | HHI.PR ---
Subjective Remarks sitting up in bed, no dizziness eating okay no cp no sob no palpitations blood sugars now coming up 170s tele reviewed, SR/narrow complex tach ? afib, frequent PVCs, triplets no palpitations wants to go home states she is not interested in surgery, afraid she would not survive, requesting that I speak to her daughter Objective Objective Results - Vital Signs Date Time Temp Pulse Resp B/P Pulse Ox O2 Delivery O2 Flow Rate FiO2 09/12/16 08:00 97.9 67 20 189/79 96 09/12/16 05:47 98.2 65 18 140/70 98 09/12/16 00:17 97.8 63 18 152/70 95 09/11/16 20:39 97.8 67 20 156/69 97 09/11/16 20:36 66 09/11/16 19:49 Room Air 09/11/16 16:00 98.9 75 20 160/71 94 09/11/16 12:00 97.6 72 18 185/76 94 I/O 09/11/16 09/11/16 09/11/16 09/12/16 09/12/16 09/12/16 07:00 15:00 23:00 07:00 15:00 23:00 Intake Total 100 ml 480 ml Balance 100 ml 480 ml Intake Oral 100 ml 480 ml # Voids 3 4 3 3 # Bowel Movements 0 1 1 0 Result Diagram: 09/09/1661309/09/16613 Imaging Last Impressions Knee X-Ray 09/07/16610 Signed Impressions: Service Date/Time: Wednesday, September 07, 2016 08:42 - CONCLUSION: 1. No acute bony abnormalities. Osei Lopez MD Hip and Pelvis X-Ray 09/07/16610 Signed Impressions: Service Date/Time: Wednesday, September 07, 2016 08:33 - CONCLUSION: 1. No acute bony abnormalities. Osteopenia. 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 No evidence of hemorrhage or edema Kenn Moreau MD Femur X-Ray 09/07/16610 Signed Impressions: Service Date/Time: Wednesday, September 07, 2016 08:38 - CONCLUSION: 1. No acute bony abnormalities. Osei Lopez MD Pelvis CT 09/07/16 0000 Signed Impressions: Service Date/Time: Wednesday, September 07, 2016 10:21 - CONCLUSION: 1. No acute fracture. Osteopenia. No dislocation. Moderate osteoarthritis of the bilateral hips. Osei Lopez MD Cervical Spine CT 09/07/16 0000 Signed Impressions: Service Date/Time: Wednesday, September 07, 2016 06:46 - CONCLUSION: Chronic degenerative disease with subluxation at multiple levels. No evidence of acute fracture. 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 SKIN: Bruises to both arms, skin tears to forearms HEAD: Atraumatic. Normocephalic. No temporal or scalp tenderness. EYES: Pupils equal round and reactive. Extraocular motions intact. No scleral icterus. No injection or drainage. ENT: Nose without bleeding, purulent drainage or septal hematoma. Throat without erythema, tonsillar hypertrophy or exudate. Uvula midline. Airway patent. NECK: Trachea midline. No JVD or lymphadenopathy. Supple, nontender, no meningeal signs. CARDIOVASCULAR: S1, S2, occ. irregular. Without murmurs, gallops, or rubs. RESPIRATORY: Clear to auscultation. Breath sounds equal bilaterally. No wheezes , rales, or rhonchi. GASTROINTESTINAL: Abdomen soft, non-tender, nondistended. No hepato-splenomegaly , or palpable masses. No guarding. MUSCULOSKELETAL: Extremities without clubbing, cyanosis, or edema. No joint tenderness, effusion, or edema noted. No calf tenderness. Negative Homans sign bilaterally. NEUROLOGICAL:Awake, alert, oriented x 3. No focal deficits. Urinary Catheter: No Vascular Central Line Catheter: No A/P Diagnosis: (1) Arrhythmia (2) Fall (3) possible afib (4) Hypoglycemia (5) Type 2 diabetes mellitus (6) Hypertension (7) Hx of kidney transplant (8) COPD (chronic obstructive pulmonary disease) (9) possible syncope (10) Mitral regurgitation Assessment and Plan 86 year female admitted after fall, hypoglycemia, hx of IDDM on insulin 70/30 and Onglyza. States symptoms ongoing x 3 days, no prior hx of hypoglycemia or falls -Accuchecks, monitor blood glucose AC/HS. Hold Onglyza and insulin 70/30. Onglyza is a new med -BGM improving -DC dextrose -Start low dose insulin Poss. afib vs ST with PACs, evaluated by Dr. Bah last year, would like to see him again. Tele is noted for afib with elevated HR at times -Cardiology input appreciated, Dr. Glover doesn't believe pt is in afib, more MAT. Increased BB and VQ scan ordered -VQ scan to r/o PE ordered, neg. PE -Cardiac telemetry -Continue ASA for now, CHADs VASC 4-5. CT of head shows old lacunar infarcts. Will defer to cardiology for anticoagulation if afib is confirmed -2D echo-EF 65%, severe mitral regurgitation -Tele reviewed, appears with occ. afib. ? anticoagulant, will defer to cardiology Mitral Regurgitation -Evaluated per Dr. Fox, pt. would need cardiac cath. Pt. not interested in surgery. Per Dr. Fox, considering advanced age, comorbidities, not a good candidate. Both pt. and daughter agree with conservative management Poss. Syncope-no further episodes -cardiology evaluating -CUS results noted -Echo done Mildly elevated trop. likely sec. to afib/st -Card input appreciated -Continue ASA -Lipid profile noted, can benefit from statin, wants to check with PCP -Hgb A1C 6.8 S/P fall with right hip and leg pain, no fractures -PT eval and tx Hx of ESRD was on HD, prior renal transplant, stable -Monitor renal function -Continue immunosuppressant agents COPD, stable -Duonebs PRN HTN, has been elevated, not taking meds at home because PCP noted BP was low and took her off meds -Continue Lopressor SCDs for DVT prophylaxis PPI for GI prophylaxis PT eval CM for dc planning, HHC/PT, pt. agreeable D/W pt and daughter at length, they want conservative management. Agreeable with home health. D/W RN D/W Dr. Sow D/W pt. D/W CM This patient was seen by myself and Dr. Sow, this note is written on his behalf. Problem Qualifiers (1) Arrhythmia: (2) Fall: Qualified Code: W19.XXXA - Fall, initial encounter (3) Type 2 diabetes mellitus: (4) Hypertension: Qualified Code: I10 - Essential hypertension (5) COPD (chronic obstructive pulmonary disease): Qualified Code: J44.9 - Chronic obstructive pulmonary disease, unspecified COPD type Annette Cagle Sep 12, 2016 09:10
[2016-09-12] MEDS ORDERED: ASPI81TA11 PO (09:13)
[2016-09-12] MEDS ORDERED: METO25TA3 PO (09:13)
--- NOTE | 2016-09-12 09:14 | HHI.DCPOC ---
Discharge Care Plan Diagnosis: (1) Fall (2) possible afib (3) COPD (chronic obstructive pulmonary disease) (4) Arrhythmia (5) Hypertension (6) Type 2 diabetes mellitus (7) possible syncope (8) Impaired mobility and activities of daily living (9) Mitral regurgitation (10) Hx of kidney transplant Your Health Problems Are: Anxiety Goals to Promote Your Health * To prevent worsening of your condition and complications * To maintain your health at the optimal level Directions to Meet Your Goals Take your medications as prescribed Follow your dietary instruction Follow activity as directed Keep your appointments as scheduled Take your immunizations and boosters as scheduled If your symptoms worsen call your PCP, if no PCP go to Urgent Care Center or Emergency Room Smoking is Dangerous to Your Health. Avoid second hand smoke Call the 24-hour hour crisis hotline for domestic abuse at Annette Cagle Sep 12, 2016 09:14
[2016-09-12] MEDS ORDERED: cloNIDine HCL 0.1 MG TAB PO PRN (09:15)
[2016-09-12 10:14] VITALS: BP 166/74
[2016-09-12] MEDS: MYCOPHENOLATE MOFETIL 250 MG CAP PO SCH (10:15)
[2016-09-12] MEDS: TACROLIMUS 1 MG CAP PO SCH (10:15)
[2016-09-12 12:00] VITALS: BP 111/56; PULSE 78; RESP 20; TEMP 98.2; O2SAT 92
--- NOTE | 2016-09-12 13:21 | HHI.DS ---
Discharge Summary Admission Date Sep 07, 2016 at 11:48 Discharge Date: Sep 12, 2016 Admitting Diagnosis new onset atrial fibrillation, hypoglycemia, mechanical fall (1) Arrhythmia (2) Fall (3) possible afib (4) Hypoglycemia (5) Type 2 diabetes mellitus (6) Hypertension (7) Hx of kidney transplant (8) COPD (chronic obstructive pulmonary disease) (9) possible syncope (10) Mitral regurgitation CBC/BMP: 09/09/16 0614 09/09/16613 Imaging Last Impressions Lung Scan-VQ Nuclear Medicine 09/09/16 Signed Impressions: Service Date/Time: Friday, September 09, 2016 09:55 - CONCLUSION: Low probability scan for pulmonary embolism Anil Salomon MD Chest X-Ray 09/09/16 Signed Impressions: Service Date/Time: Friday, September 09, 2016 08:33 - CONCLUSION: 1. Chronically elevated right hemidiaphragm, stable since 2016. Minimal basal atelectasis. No acute findings. Osei Lopez MD Carotid Artery Ultrasound 09/08/16 Signed Impressions: Service Date/Time: September 11:42 - CONCLUSION: Mild mild-moderate atherosclerotic carotid bifurcation disease bilaterally without definite flow limiting stenosis. Bidirectional flow in the right vertebral artery suggests proximal or right subclavian stenosis Anil Salomon MD Knee X-Ray 09/07/16610 Signed Impressions: Service Date/Time: Wednesday, September 07, 2016 08:42 - CONCLUSION: 1. No acute bony abnormalities. Osei Lopez MD Hip and Pelvis X-Ray 09/07/16610 Signed Impressions: Service Date/Time: Wednesday, September 07, 2016 08:33 - CONCLUSION: 1. No acute bony abnormalities. Osteopenia. 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 No evidence of hemorrhage or edema Kenn Moreau MD Femur X-Ray 09/07/16610 Signed Impressions: Service Date/Time: Wednesday, September 07, 2016 08:38 - CONCLUSION: 1. No acute bony abnormalities. Osei Lopez MD Pelvis CT 09/07/16 Signed Impressions: Service Date/Time: Wednesday, September 07, 2016 10:21 - CONCLUSION: 1. No acute fracture. Osteopenia. No dislocation. Moderate osteoarthritis of the bilateral hips. Osei Lopez MD Cervical Spine CT 09/07/16 0000 Signed Impressions: Service Date/Time: Wednesday, September 07, 2016 06:46 - CONCLUSION: Chronic degenerative disease with subluxation at multiple levels. No evidence of acute fracture. Kenn Moreau MD Hospital Course This a pleasant 86-year-old elderly white female with significant past medical history of COPD not on any oxygen therapy, type 2 diabetes, hypertension, previous right renal transplant 11 years ago, prior history of kidney disease was on dialysis, on immunosuppressive therapy, questionable afib and WCT. Patient brought to the hospital after she was found on the floor after fall, was noted hypoglycemic with BS of 36, bleeding from skin tears on both arm. States she could not stand and legs were buckling. Complained of right hip and right leg pain. Pt. states that for the last 3 nights, she woke up to use bathroom and when she stood up and started walking she felt disoriented, and unsteady. On the second night, she could not stand and lost control of bladder in bed, she felt the sheets were heavy on her legs. Night before, she went to bed okay and was found on floor, per sons she appeared confused. Pt. did not recall falling. She is a fairly good historian, however, she only remembers seeing her son assisting her. Denied headache, neck pain, paresthesias, numbness. Pt. is a diabetic and takes Novolin 70/30 in am and pm, also on PO hypoglycemic Onglyza. Stated she had been doing well, appetite had been good, she is very good about taking a nighttime snack after taking insulin. When EMS arrived, her BS was 45. Her family gave her oral glucose and a sandwich. EMS gave her 12.5 g of glucose. Pt. arrived in the ED, stable, alert and oriented x 3. She was noted tachycardic, possibly afib. Pt. was seen last year by Dr. Bah during admission for COPD exacerbation for poss. afib and wide complex tach. He believed dysrhythmia was likely brought on by respiratory illness and duonebs and recommended aspirin. Pt. denies palpitations, no cp, no excessive sob. No recent fever, no chills. Has hx of renal transplant and follows up with Dr. Westbrook, renal function is stable, she is compliant with medications. In the ED, she was evaluated, laboratory work up was done. CBC unremarkable. BMP stable. Trop slightly elevated 0.06, no chest pain. BNP was 287. Imaging studies were completed, no fractures. CT of head shows bilat old lacunar strokes , pt. denied any prior history. Pt.'s heart rate stable, EKG reviewed, noted with some PACs, poss. afib. Pt. was admitted for further evaluation and treatment. (1) Arrhythmia (2) Fall (3) possible afib (4) Hypoglycemia (5) Type 2 diabetes mellitus (6) Hypertension (7) Hx of kidney transplant (8) COPD (chronic obstructive pulmonary disease) (9) possible syncope (10) Mitral regurgitation During the course of the hospitalization, the following events took place: 86 year female admitted after fall, hypoglycemia, hx of IDDM on insulin 70/30 and Onglyza. States symptoms ongoing x 3 days, no prior hx of hypoglycemia or falls -Accuchecks, monitor blood glucose AC/HS. Held Onglyza and insulin 70/30. Onglyza is a new med -Was put on IV dextrose, which was later dc's when BGMs coming up -Started low dose insulin -no episodes of hypoglycemia Poss. afib vs ST with PACs, evaluated by Dr. Bah last year, would like to see him again. Tele is noted for afib with elevated HR at times -Cardiology input appreciated, Dr. Glover doesn't believe pt is in afib, more MAT. Increased BB and VQ scan ordered -VQ scan to r/o PE ordered, neg. PE -Cardiac telemetry done -Continued ASA for now, CHADs VASC 4-5. CT of head shows old lacunar infarcts. Cardiology recommended aspirin -2D echo-EF 65%, severe mitral regurgitation -Cardiology consulted cardiothoracic surgeon Mitral Regurgitation -Evaluated per Dr. Fox, pt. would need cardiac cath. Pt. not interested in surgery. Per Dr. Fox, considering advanced age, comorbidities, not a good candidate. Both pt. and daughter agree with conservative management Poss. Syncope-no further episodes -remained stable -cardiology evaluated -CUS results noted -Echo done Mildly elevated trop. likely sec. to afib/st with PACs -Card input appreciated -Continue ASA -Lipid profile noted, can benefit from statin, pt wants to check with PCP first -Hgb A1C 6.8 S/P fall with right hip and leg pain, no fractures -PT eval and tx -stable, no more falls Hx of ESRD was on HD, prior renal transplant, stable -Monitored renal function -Continued on immunosuppressant agents COPD, stable -Duonebs PRN HTN, has been elevated, not taking meds at home because PCP noted BP was low and took her off meds -stared on Lopressor. BP improved. SCDs for DVT prophylaxis PPI for GI prophylaxis PT eval CM for dc planning, HHC/PT, pt. agreeable D/W pt and daughter at length, they want conservative management. Agreeable with home health. Attending d/w michael Lux for dc Pt. discharged home in stable condition. Pt Condition on Discharge: Stable Discharge Disposition: Disch w/ Home Health Serv Discharge Instructions DIET: Follow Instructions for: Heart Healthy Diet, Diabetic Diet Activities you can perform: Weight Bearing as Ladi Follow up Referrals: Cardiology - 1 Week with Flavio Bah MD PCP Follow-up New Medications: Aspirin (Aspirin EC) 81 Mg Tabdr 81 MG PO DAILY Stroke Prevention #30 TAB Metoprolol Tartrate (Metoprolol Tartrate) 25 Mg Tab 25 MG PO Q12HR Blood Pressure Management #60 Ref 1 TAB Continued Medications: Insulin Human Isophane-Regular 70-30 Inj (Novolin 70-30 Inj) 1,000 Unit/10 Ml Vial 25 UNITS SQ Blood Sugar Management Ref 0 ML Insulin Human Isophane-Regular 70-30 Inj (Novolin 70-30 Inj) 1,000 Unit/10 Ml Vial 15 UNITS SQ HS Blood Sugar Management Ref 0 ML Magnesium Oxide (Magnesium Oxide) 400 Mg Tab 400 MG PO DAILY Nutritional Supplement Ref 0 TAB Mycophenolate (Mycophenolate) 250 Mg Cap 750 MG PO BID Immunosuppression #180 Ref 0 CAP Omeprazole (Omeprazole) 20 Mg Tab 20 MG PO DAILY #30 Ref 0 TAB Prednisone (Prednisone) 5 Mg Tab 7.5 MG PO DAILY Ref 0 TAB Tacrolimus (Prograf) 1 Mg Cap 2 MG PO BID Prevent Transplant Reject #60 Ref 0 CAP Discontinued Medications: Saxagliptin (Onglyza) 5 Mg Tab 5 MG PO DAILY Blood Sugar Management #30 Ref 0 TAB Annette Cagle Sep 12, 2016 13:21
[2016-09-12] MEDS ORDERED: NOVOLOGP2 SQ (13:51)
[2016-09-12 16:00] VITALS: BP 140/53; PULSE 73; RESP 20; TEMP 99.7; O2SAT 96
== END 2016-09-12 18:23 | disposition home health service (06) | DRG 638 ==
LOC: NEPC 05:55 → NEDA 11:48 → N04B 23:22
PROVIDERS: ADMIT Specialist; ATTEND Specialist
DX: E11.649 Type 2 diabetes mellitus with hypoglycemia without coma (principal); Z94.0 Kidney transplant status; J44.9 Chronic obstructive pulmonary disease, unspecified; I34.0 Nonrheumatic mitral (valve) insufficiency; I49.8 Other specified cardiac arrhythmias; Z79.4 Long term (current) use of insulin; Z79.84 Long term (current) use of oral hypoglycemic drugs; S41.111A Laceration without foreign body of right upper arm, initial encounter; S41.112A Laceration without foreign body of left upper arm, initial encounter; M79.604 Pain in right leg; W19.XXXA Unspecified fall, initial encounter; I10 Essential (primary) hypertension; H54.7 Unspecified visual loss; I25.2 Old myocardial infarction; Z87.891 Personal history of nicotine dependence
CPT/HCPCS: 70450; 71010; 72125; 72192; 73502; 73552; 73564; 78582; 80048; 80053; 80061; 81001; 82550; 82552; 82948; 83036; 83735; 83880; 84484; 85025; 85027; 85610; 85730; 90471; 90714; 93005; 93306; 93880; 96361; 96374; 96375; A9540; A9567; J1815; J2270; J2405; J7030; J7507; J7512; J7517

== ENCOUNTER 2016-09-21 03:46 | Emergency (ER) | payer MEDICARE, OTHER ==
[~2016-09-21] VITALS: Ht 167.6 cm; Wt 75.0 kg
[~2016-09-21 03:46] MED LIST changes: +ASPI81TA11 PO; -CIPR250T2 PO; -ECOT81TA2 PO; -MAGN400T PO; +MAGN400T2 PO; +METO25TA3 PO; -METR-1 PO; -MYCO250 PO; +MYCO250C PO; -NOVO7030P2 SQ; +NOVOLOGP2 SQ; -PRED5 PO; +PRED5TAB PO; -SAXA5TAB2 PO
[2016-09-21 03:49] VITALS: BP 134/60; PULSE 90; RESP 18; TEMP 99.4; O2SAT 95
[2016-09-21] MEDS ORDERED: SODIUM CHLOR 0.9% 1000 ML INJ 1,000 ML IV ONE (03:51)
--- NOTE | 2016-09-21 03:55 | PD ---
HPI . Headache Chief Complaint: Cold / Flu Symptoms Time Seen by Provider: 03:51 Travel History International Travel<30 days: No Contact w/Intl Traveler<30days: No Traveled to known affect area: No History of Present Illness HPI Patient presents with a 24-hour history of headache, nasal congestion, cough, nausea, body aches. She denies any known exposures. PFSH Past Medical History Arthritis: Yes Asthma: Yes Autoimmune Disease: No Anxiety: No Depression: No Heart Rhythm Problems: No Cancer: No Cardiovascular Problems: Yes High Cholesterol: No Chemotherapy: No Chest Pain: No Congestive Heart Failure: No COPD: Yes Cerebrovascular Accident: No Coronary Artery Disease: No Diabetes: Yes Patient Takes Glucophage: No Diminished Hearing: No Endocrine: Yes Gastrointestinal Disorders: Yes GERD: Yes Genitourinary: No Hiatal Hernia: Yes Hypertension: Yes Immune Disorder: No Kidney Stones: No Musculoskeletal: No Neurologic: No Psychiatric: No Reproductive: No Respiratory: Yes Migraines: No Radiation Therapy: No Renal Failure: Yes Seizures: No Sickle Cell Disease: No Sleep Apnea: No Thyroid Disease: No Ulcer: Yes Tetanus Vaccination: < 5 Years Influenza Vaccination: Yes Tubal Ligation: Yes Past Surgical History Abdominal Surgery: Yes (appendix) AICD: No Appendectomy: Yes Arteriovenous Shunt: No Cardiac Surgery: No Cholecystectomy: Yes Ear Surgery: No Endocrine Surgery: No Eye Surgery: Yes Genitourinary Surgery: Yes (gall bladder, kidney transplant (RIGHT)) Gynecologic Surgery: Yes (hysterectomy) Insulin Pump: No Joint Replacement: No Oral Surgery: Yes (teeth pulled for dentures) Pacemaker: No Thoracic Surgery: No Other Surgery: Yes (KIDNEY TRANSPLANT) Social History Alcohol Use: No Tobacco Use: No Substance Use: No Allergies-Medications (Allergen,Severity, Reaction): Coded Allergies: No Known Allergies (Unverified , 09/21/16) Reported Meds & Prescriptions Reported Meds & Active Scripts Active Novolog Inj (Insulin Aspart) 1,000 Unit/10 Ml Vial 1-9 Units SQ ACHS Max dose at bedtime:(0 )units; sugars less than 70,(0)units; sugars 150-199,(1) unit; sugars 200-249,(3) units; sugars 250-299,(5) units; sugars 300-349,(7) units; sugars greater than 349,(9) units Metoprolol Tartrate 25 Mg Tab 25 Mg PO Q12HR Aspirin EC (Aspirin) 81 Mg Tabdr 81 Mg PO DAILY Reported Omeprazole 20 Mg Tab 20 Mg PO DAILY Prednisone 5 Mg Tab 7.5 Mg PO DAILY Magnesium Oxide 400 Mg Tab 400 Mg PO DAILY Prograf (Tacrolimus) 1 Mg Cap 2 Mg PO BID Mycophenolate (Mycophenolate Mofetil) 250 Mg Cap 750 Mg PO BID Review of Systems Except as stated in HPI: all other systems reviewed are Neg General / Constitutional: Positive: Fever, Chills HENT: Positive: Headaches, Congestion Respiratory: Positive: Cough Gastrointestinal: Positive: Nausea, No: Vomiting, Diarrhea Genitourinary: Positive: Decreased Urinary Output, No: Urgency, Frequency, Dysuria Musculoskeletal: Positive: Myalgias Skin: No Rash Physical Exam Narrative GENERAL: Elderly woman in no acute distress. SKIN: Warm and dry. HEAD: Atraumatic. Normocephalic. EYES: Pupils equal and round. ENT: No nasal bleeding or discharge. Mucous membranes pink and moist. NECK: Trachea midline. Neck is supple with no palpable cervical lymphadenopathy. CARDIOVASCULAR: Irregular rhythm with a controlled rate. She has a harsh systolic murmur. RESPIRATORY: No accessory muscle use. Lungs are clear with full air movement. GASTROINTESTINAL: Abdomen soft, non-tender, nondistended. MUSCULOSKELETAL: No obvious deformities. No edema. NEUROLOGICAL: Awake and alert. No obvious cranial nerve deficits. Motor grossly within normal limits. Normal speech. PSYCHIATRIC: Appropriate mood and affect; insight and judgment normal. Data Data Last Documented VS Vital Signs Date Time Temp Pulse Resp B/P Pulse Ox O2 Delivery O2 Flow Rate FiO2 09/21/16 06:32 74 20 161/65 93 09/21/16 03:51 Room Air 09/21/16 03:49 99.4 Orders Complete Blood Count With Diff (09/21/16 03:51) Basic Metabolic Panel (Bmp) (09/21/16 03:51) Iv Access Insert/Monitor (09/21/16 03:51) Sodium Chloride 0.9% Flush (Ns Flush) (09/21/16 04:00) Prochlorperazine Inj (Compazine Inj) (09/21/16 04:00) Diphenhydramine Inj (Benadryl Inj) (09/21/16 04:00) Sodium Chlor 0.9% 1000 Ml Inj (Ns 1000 M (09/21/16 03:51) Urinalysis - C+S If Indicated (09/21/16 03:51) Influenzae A/B Antigen (09/21/16 03:51) Chest, Pa & Lat (09/21/16 04:28) Labs Laboratory Tests Test 09/21/16 09/21/16 03:45 04:05 White Blood Count 17.0 TH/MM3 Red Blood Count 4.20 MIL/MM3 Hemoglobin 11.4 GM/DL Hematocrit 35.9 % Mean Corpuscular Volume 85.4 FL Mean Corpuscular Hemoglobin 27.1 PG Mean Corpuscular Hemoglobin 31.8 % Concent Red Cell Distribution Width 16.6 % Platelet Count 274 TH/MM3 Mean Platelet Volume 7.9 FL Neutrophils (%) (Auto) 79.2 % Lymphocytes (%) (Auto) 12.0 % Monocytes (%) (Auto) 8.1 % Eosinophils (%) (Auto) 0.1 % Basophils (%) (Auto) 0.6 % Neutrophils # (Auto) 13.5 TH/MM3 Lymphocytes # (Auto) 2.0 TH/MM3 Monocytes # (Auto) 1.4 TH/MM3 Eosinophils # (Auto) 0.0 TH/MM3 Basophils # (Auto) 0.1 TH/MM3 CBC Comment DIFF FINAL Differential Comment Sodium Level 137 MEQ/L Potassium Level 4.3 MEQ/L Chloride Level 104 MEQ/L Carbon Dioxide Level 26.4 MEQ/L Anion Gap 7 MEQ/L Blood Urea Nitrogen 22 MG/DL Creatinine 0.98 MG/DL Estimat Glomerular Filtration 54 ML/MIN Rate Random Glucose 216 MG/DL Calcium Level 8.1 MG/DL Urine Color YELLOW Urine Turbidity HAZY Urine pH 6.0 Urine Specific Anderson 1.029 Urine Protein GREATER THAN 600 mg/dL Urine Glucose (UA) 70 mg/dL Urine Ketones NEG mg/dL Urine Occult Blood SMALL Urine Nitrite NEG Urine Bilirubin NEG Urine Urobilinogen LESS THAN 2.0 MG/DL Urine Leukocyte Esterase NEG Urine RBC 7 /hpf Urine WBC 3 /hpf Urine Bacteria FEW /hpf Urine Hyaline Casts 7 /lpf Urine Granular Casts 6 /lpf Urine Mucus FEW /lpf Microscopic Urinalysis Comment CULT NOT INDICATED MDM Medical Decision Making Medical Screen Exam Complete: Yes Emergency Medical Condition: Yes Differential Diagnosis Differential diagnosis includes but is not limited to influenza, upper respiratory infection, bronchitis, pneumonia Narrative Course Patient presents with symptoms compatible with a viral illness. Her chief complaint seems to be headache. I have ordered IV Compazine and IV Benadryl to treat her headache. I have also ordered some IV fluids as she reports decreased urinary output. CBC has a white count of 17.0. Chemistries unremarkable. UA shows 7 red cells, 3 white cells, few bacteria and mucus. It is nitrite and leukocyte esterase negative. Chest x-ray is negative for infiltrate. Patient reports she is feeling much better. Sepsis Criteria SIRS Criteria (2 or more): WBC > 24515, < 4000 or > 10% bands Diagnosis Primary Impression: Viral syndrome Patient Instructions: General Instructions, Viral Syndrome (ED) Scripts Promethazine (Phenergan)25 Mg Tab25 Mg PO Q6H PRN (Nausea/Vomiting) #10 TAB Ref 0 Prov:Jennifer Galaviz MD 09/21/16 Disposition: 01 DISCHARGE HOME Condition: Stable Jennifer Galaviz MD Sep 21, 2016 03:55
[2016-09-21] MEDS ORDERED: PROCHLORPERAZINE INJ 10 MG/2 ML VIAL IVP ONE (04:00)
[2016-09-21] MEDS ORDERED: SODIUM CHLORIDE 0.9% FLUSH 5 ML FLUSH IVF PRN (04:00)
[2016-09-21] MEDS ORDERED: diphenhydrAMINE HCL 50 MG/ML VIAL IVP ONE (04:00)
[2016-09-21 04:22] LABS: AUTOMATED NEUTROPHIL # 13.5 TH/MM3 (1.8-7.7); BASOPHIL # 0.1 TH/MM3 (0-0.2); BASOPHIL % 0.6 % (0.0-2.0); EOSINOPHIL % 0.1 % (0.0-4.0); HEMATOCRIT 35.9 % (35.0-46.0); HEMO FLAGS DIFF FINAL; MEAN CELL VOLUME 85.4 FL (80.0-100.0); MEAN CORPUSCULAR HEMOGLOBIN 27.1 PG (27.0-34.0); MEAN CORPUSCULAR HGB CONC 31.8 % (32.0-36.0); MONO % 8.1 % (0.0-8.0); NEUT % 79.2 % (16.0-70.0); PLATELET COUNT 274 TH/MM3 (150-450); RED CELL DISTRIBUTION WIDTH 16.6 % (11.6-17.2)
[2016-09-21 04:37] LABS: BICARBONATE 26.4 MEQ/L (21.0-32.0); POTASSIUM 4.3 MEQ/L (3.5-5.1)
[2016-09-21 04:39] LABS: BACTERIA, URINE FEW /hpf; BLOOD, URINE SMALL (NEG); COMMENT (UR) CULT NOT INDICATED; CULTURE IF INDICATED CULT NOT INDICATED; GLUCOSE,URINE 70 mg/dL (NEG); GRANULAR CAST, URINE 6 /lpf; HYALINE CAST, URINE 7 /lpf (RARE); KETONE, URINE NEG (NEG); MUCUS URINE FEW /lpf (OCC); NITRITE,URINE NEG (NEG); URINE COLOR YELLOW (YELLW/STRAW)
--- NOTE | 2016-09-21 06:29 | RADRPT ---
EXAM DATE/TIME: 09/21/2016 06:24 [facility] COMPARISON: CHEST SINGLE AP, September 09, 2016, 8:33. INDICATIONS : Cough. MEDICAL HISTORY : Cardiovascular disease. Diabetes mellitus type I. Hypertension. SURGICAL HISTORY : Appendectomy. Cholecystectomy. ENCOUNTER: Initial ACUITY: 1 week PAIN SCORE: 0/10 LOCATION: Bilateral chest FINDINGS: Stable elevation of the right diaphragm. Patchy mild interstitial thickening similar to prior. Cardio mediastinal contours are unchanged. No significant effusion. Degenerative changes in the spine CONCLUSION: Stable chest appearance. Anil Salomon MD on September 21, 2016 at 6:26 Board Certified Radiologist. This report was verified electronically.
[2016-09-21 06:32] VITALS: BP 161/65; PULSE 74; RESP 20; O2SAT 93
[2016-09-21] MEDS ORDERED: PROM25TA5 PO (06:40)
== END 2016-09-21 09:31 | disposition home or self-care (01) ==
LOC: NEPC 03:46
DX: B34.9 Viral infection, unspecified (principal); I12.0 Hypertensive chronic kidney disease with stage 5 chronic kidney disease or end stage renal disease; N18.6 End stage renal disease; J45.909 Unspecified asthma, uncomplicated; J44.9 Chronic obstructive pulmonary disease, unspecified
CPT/HCPCS: 71020; 80048; 81001; 85025; 87804; 96374; 96375; 99284; J0780; J1200; J7030

== ENCOUNTER 2016-10-06 05:55 | Emergency (ER) | payer MEDICARE, OTHER ==
[~2016-10-06] VITALS: Ht 152.4 cm; Wt 63.0 kg
[~2016-10-06 05:55] MED LIST changes: +PROM25TA5 PO
[2016-10-06 05:58] VITALS: BP 140/55; PULSE 75; RESP 18; TEMP 97.5; O2SAT 98
--- NOTE | 2016-10-06 06:07 | PD ---
HPI Chief Complaint: Diabetic Time Seen by Provider: 06:05 Travel History International Travel<30 days: No Contact w/Intl Traveler<30days: No Traveled to known affect area: No History of Present Illness HPI 86 yo F arrives by EMS. Her son heard her at home evidently somewhat tremulous. The patient has episodes of hypoglycemia followed by tremor. It seems as though the same thing happened this morning. The blood sugar on scene was about 35. The fire department gave "D10" and an unknown quantity. Blood glucose 114 upon arrival here. Patient took her NovoLog as per normal. In the ER she has no specific complaint. PFSH Past Medical History Arthritis: Yes Asthma: Yes Autoimmune Disease: No Anxiety: No Depression: No Heart Rhythm Problems: No Cancer: No Cardiovascular Problems: Yes High Cholesterol: No Chemotherapy: No Chest Pain: No Congestive Heart Failure: No COPD: Yes Cerebrovascular Accident: No Coronary Artery Disease: No Diabetes: Yes Diminished Hearing: No Endocrine: Yes Gastrointestinal Disorders: Yes GERD: Yes Genitourinary: No Hiatal Hernia: Yes Hypertension: Yes Immune Disorder: No Kidney Stones: No Musculoskeletal: No Neurologic: No Psychiatric: No Reproductive: No Respiratory: Yes Migraines: No Radiation Therapy: No Renal Failure: Yes Seizures: No Sickle Cell Disease: No Sleep Apnea: No Thyroid Disease: No Ulcer: Yes Tubal Ligation: Yes Past Surgical History Abdominal Surgery: Yes (appendix) AICD: No Appendectomy: Yes Arteriovenous Shunt: No Cardiac Surgery: No Cholecystectomy: Yes Ear Surgery: No Endocrine Surgery: No Eye Surgery: Yes Genitourinary Surgery: Yes (gall bladder, kidney transplant (RIGHT)) Gynecologic Surgery: Yes (hysterectomy) Insulin Pump: No Joint Replacement: No Oral Surgery: Yes (teeth pulled for dentures) Pacemaker: No Thoracic Surgery: No Other Surgery: Yes (KIDNEY TRANSPLANT) Social History Alcohol Use: No Tobacco Use: No Substance Use: No Allergies-Medications (Allergen,Severity, Reaction): Coded Allergies: No Known Allergies (Unverified , 09/21/16) Reported Meds & Prescriptions Reported Meds & Active Scripts Active Bactrim DS (Sulfamethoxazole-Trimethoprim) 800-160 Mg Tab 1 Tab PO BID Phenergan (Promethazine HCl) 25 Mg Tab 25 Mg PO Q6H PRN Novolog Inj (Insulin Aspart) 1,000 Unit/10 Ml Vial 1-9 Units SQ ACHS Max dose at bedtime:(0 )units; sugars less than 70,(0)units; sugars 150-199,(1) unit; sugars 200-249,(3) units; sugars 250-299,(5) units; sugars 300-349,(7) units; sugars greater than 349,(9) units Metoprolol Tartrate 25 Mg Tab 25 Mg PO Q12HR Aspirin EC (Aspirin) 81 Mg Tabdr 81 Mg PO DAILY Reported Omeprazole 20 Mg Tab 20 Mg PO DAILY Prednisone 5 Mg Tab 7.5 Mg PO DAILY Magnesium Oxide 400 Mg Tab 400 Mg PO DAILY Prograf (Tacrolimus) 1 Mg Cap 2 Mg PO BID Mycophenolate (Mycophenolate Mofetil) 250 Mg Cap 750 Mg PO BID Review of Systems Except as stated in HPI: all other systems reviewed are Neg Physical Exam Narrative GENERAL: 86-year-old female pleasant well-nourished well-developed SKIN: Warm and dry. Minimal erythema with closed wound dorsum R foot, minimal tenderness. HEAD: Atraumatic. Normocephalic. EYES: Pupils equal and round. No scleral icterus. No injection or drainage. ENT: No nasal bleeding or discharge. Mucous membranes pink and moist. NECK: Trachea midline. No JVD. CARDIOVASCULAR: Regular rate and rhythm. No murmur appreciated. RESPIRATORY: No accessory muscle use. Clear to auscultation. Breath sounds equal bilaterally. GASTROINTESTINAL: Abdomen soft, non-tender, nondistended. Hepatic and splenic margins not palpable. MUSCULOSKELETAL: No obvious deformities. No clubbing. No cyanosis. No edema. NEUROLOGICAL: Awake and alert. No obvious cranial nerve deficits. Motor grossly within normal limits. Normal speech. PSYCHIATRIC: Appropriate mood and affect; insight and judgment normal. Data Data Last Documented VS Vital Signs Date Time Temp Pulse Resp B/P Pulse Ox O2 Delivery O2 Flow Rate FiO2 10/06/16 05:58 97.5 75 18 140/55 98 Vital signs normal Orders Basic Metabolic Panel (Bmp) (10/06/16 06:05) Complete Blood Count With Diff (10/06/16 06:05) Urinalysis - C+S If Indicated (10/06/16 06:05) Iv Access Insert/Monitor (10/06/16 06:05) Ecg Monitoring (10/06/16 06:05) Oximetry (10/06/16 06:05) Sodium Chloride 0.9% Flush (Ns Flush) (10/06/16 06:15) ^ Straight Catheter (10/06/16 06:05) Blood Glucose (10/06/16 06:07) Blood Glucose (10/06/16 06:37) Oral Rehydration (10/06/16 06:14) Urine Culture (10/06/16 06:15) Labs Laboratory Tests Test 10/06/16 06:15 White Blood Count 11.0 TH/MM3 Red Blood Count 4.30 MIL/MM3 Hemoglobin 11.9 GM/DL Hematocrit 36.7 % Mean Corpuscular Volume 85.5 FL Mean Corpuscular Hemoglobin 27.7 PG Mean Corpuscular Hemoglobin 32.4 % Concent Red Cell Distribution Width 16.8 % Platelet Count 319 TH/MM3 Mean Platelet Volume 7.5 FL Neutrophils (%) (Auto) 85.5 % Lymphocytes (%) (Auto) 7.0 % Monocytes (%) (Auto) 6.6 % Eosinophils (%) (Auto) 0.5 % Basophils (%) (Auto) 0.4 % Neutrophils # (Auto) 9.4 TH/MM3 Lymphocytes # (Auto) 0.8 TH/MM3 Monocytes # (Auto) 0.7 TH/MM3 Eosinophils # (Auto) 0.1 TH/MM3 Basophils # (Auto) 0.0 TH/MM3 CBC Comment DIFF FINAL Differential Comment Urine Color YELLOW Urine Turbidity CLEAR Urine pH 6.0 Urine Specific [place] 1.017 Urine Protein 300 mg/dL Urine Glucose (UA) NEG mg/dL Urine Ketones NEG mg/dL Urine Occult Blood SMALL Urine Nitrite NEG Urine Bilirubin NEG Urine Urobilinogen LESS THAN 2.0 MG/DL Urine Leukocyte Esterase NEG Urine RBC 4 /hpf Urine WBC 2 /hpf Urine Bacteria FEW /hpf Urine Mucus FEW /lpf Microscopic Urinalysis Comment CATH-CULTURE IND Sodium Level 139 MEQ/L Potassium Level 4.8 MEQ/L Chloride Level 106 MEQ/L Carbon Dioxide Level 25.8 MEQ/L Anion Gap 7 MEQ/L Blood Urea Nitrogen 20 MG/DL Creatinine 0.76 MG/DL Estimat Glomerular Filtration 72 ML/MIN Rate Random Glucose 119 MG/DL Calcium Level 8.4 MG/DL [facility] Medical Decision Making Medical Screen Exam Complete: Yes Emergency Medical Condition: Yes Differential Diagnosis Hypoglycemia, electrolyte imbalance, insulin overdose, sulfonylurea overdose Narrative Course Pt takes no sulfonylurea agent. She is eating richardson crackers and drinking orange juice. We will re-check FSG if stable patient can go home. Repeat glucose is 123 at 700AM. We will recheck in 1 hour if stable ok for discharge home. CBC & BMP Diagram 10/06/16 06:15 Chemistry glucose 119 BUN 20 Creatinine 0.76 Trace erythema on dorsum R foot will be treated with Bactrim DS. Pt has follow up with podiatry and with Dr Quan. Diagnosis Primary Impression: Hypoglycemia Additional Impression: Cellulitis Qualified Code: L03.115 - Cellulitis of right lower extremity Referrals: Heath Quan MD 2 days Additional Instructions: You have a choice when it comes to health care, and we are glad that you chose [facility]. Hopefully, we have met your expectations on today's visit. You are welcome to return to [facility] at any time, as we are committed to meeting the health care needs of our community. Med/Other Pt SpecificInfo: Prescription(s) given Scripts Sulfamethoxazole-Trimethoprim (Bactrim DS)800-160 Mg Tab1 Tab PO BID #14 TAB Ref 0 Prov:Gen Bishop MD 10/06/16 Disposition: DISCHARGE HOME Condition: Stable Gen Bihsop MD Oct 06, 2016 06:06
[2016-10-06] MEDS ORDERED: SODIUM CHLORIDE 0.9% FLUSH 5 ML FLUSH IVF PRN (06:15)
[2016-10-06 06:28] LABS: AUTOMATED NEUTROPHIL # 9.4 TH/MM3 (1.8-7.7); BASOPHIL % 0.4 % (0.0-2.0); EOSINOPHIL # 0.1 TH/MM3 (0-0.4); EOSINOPHIL % 0.5 % (0.0-4.0); HEMATOCRIT 36.7 % (35.0-46.0); HEMO FLAGS DIFF FINAL; LYMPHOCYTE # 0.8 TH/MM3 (1.0-4.8); MEAN CELL VOLUME 85.5 FL (80.0-100.0); MEAN CORPUSCULAR HEMOGLOBIN 27.7 PG (27.0-34.0); MEAN CORPUSCULAR HGB CONC 32.4 % (32.0-36.0); MONO % 6.6 % (0.0-8.0); NEUT % 85.5 % (16.0-70.0); PLATELET COUNT 319 TH/MM3 (150-450); RED CELL DISTRIBUTION WIDTH 16.8 % (11.6-17.2)
[2016-10-06 06:31] LABS: BACTERIA, URINE FEW /hpf; BLOOD, URINE SMALL (NEG); GLUCOSE,URINE NEG (NEG); KETONE, URINE NEG (NEG); MUCUS URINE FEW /lpf (OCC); NITRITE,URINE NEG (NEG); URINE COLOR YELLOW (YELLW/STRAW)
[2016-10-06 06:32] LABS: COMMENT (UR) CATH-CULTURE IND; CULTURE IF INDICATED CATH CULTURE IND
[2016-10-06] MEDS ORDERED: BACT800T5 PO (06:54)
[2016-10-06 06:55] LABS: BICARBONATE 25.8 MEQ/L (21.0-32.0)
[2016-10-06 06:56] LABS: POTASSIUM 4.8 MEQ/L (3.5-5.1)
[2016-10-06 08:00] VITALS: BP 138/76; PULSE 80; RESP 16; O2SAT 95
== END 2016-10-06 08:36 | disposition home or self-care (01) ==
LOC: NEPE 05:55
DX: M19.90 Unspecified osteoarthritis, unspecified site (principal); I12.0 Hypertensive chronic kidney disease with stage 5 chronic kidney disease or end stage renal disease; E11.22 Type 2 diabetes mellitus with diabetic chronic kidney disease; N18.6 End stage renal disease; J45.909 Unspecified asthma, uncomplicated; J44.9 Chronic obstructive pulmonary disease, unspecified; Z94.0 Kidney transplant status
CPT/HCPCS: 80048; 81001; 85025; 87086; 99285; P9612

== ENCOUNTER 2016-10-08 04:02 | Emergency (ER) | payer MEDICARE, OTHER ==
[~2016-10-08] VITALS: Ht 152.4 cm; Wt 60.0 kg
[~2016-10-08 04:02] MED LIST changes: +BACT800T5 PO
--- NOTE | 2016-10-08 04:07 | PD ---
HPI Chief Complaint: Hypoglycemia Time Seen by Provider: 04:07 Travel History International Travel<30 days: No Contact w/Intl Traveler<30days: No Traveled to known affect area: No History of Present Illness HPI 86-year-old female was brought in by EMS with history of hypoglycemia. Patient says that she woke up in the middle of the night and was not feeling right. She called 911. When they came to check on her and checked her sugar it was 60. Patient was given a sandwich and some orange juice at her home and recheck of the sugar en route and it was 80. Upon arrival to the ER patient was awake and answering questions appropriately. Her blood glucose level was 85. Vital signs otherwise were within normal limits. Patient says that this has happened for the second time. Last time she was in the hospital for almost a week. She is a diabetic and takes insulin morning and evening. Last night before her supper she checked her blood sugar and it was 135. After that she had a bowl of macaroni soup and then took her insulin and went to bed. She also has a foot infection that was treated while she was in the hospital and she was discharged home on Bactrim which she still taking. Her son has been doing dressing changes. The current dressing was put yesterday by her son. [facility] Past Medical History Narrative Medical List of her past medical history is reviewed from the nursing note. Arthritis: Yes Asthma: Yes Autoimmune Disease: No Anxiety: No Depression: No Heart Rhythm Problems: No Cancer: No Cardiovascular Problems: Yes High Cholesterol: No Chemotherapy: No Chest Pain: No Congestive Heart Failure: No COPD: Yes Cerebrovascular Accident: No Coronary Artery Disease: No Diabetes: Yes Diminished Hearing: No Endocrine: Yes Gastrointestinal Disorders: Yes GERD: Yes Genitourinary: No Hiatal Hernia: Yes Hypertension: Yes Immune Disorder: No Kidney Stones: No Musculoskeletal: No Neurologic: No Psychiatric: No Reproductive: No Respiratory: Yes Migraines: No Radiation Therapy: No Renal Failure: Yes Seizures: No Sickle Cell Disease: No Sleep Apnea: No Thyroid Disease: No Ulcer: Yes Tubal Ligation: Yes Past Surgical History Abdominal Surgery: Yes (appendix) AICD: No Appendectomy: Yes Arteriovenous Shunt: No Cardiac Surgery: No Cholecystectomy: Yes Ear Surgery: No Endocrine Surgery: No Eye Surgery: Yes Genitourinary Surgery: Yes (gall bladder, kidney transplant (RIGHT)) Gynecologic Surgery: Yes (hysterectomy) Insulin Pump: No Joint Replacement: No Oral Surgery: Yes (teeth pulled for dentures) Pacemaker: No Thoracic Surgery: No Other Surgery: Yes (KIDNEY TRANSPLANT) Social History Alcohol Use: No Tobacco Use: No Substance Use: No Allergies-Medications (Allergen,Severity, Reaction): Coded Allergies: No Known Allergies (Unverified , 09/21/16) Comments No known drug allergies. Reported Meds & Prescriptions Reported Meds & Active Scripts Active Bactrim DS (Sulfamethoxazole-Trimethoprim) 800-160 Mg Tab 1 Tab PO BID Phenergan (Promethazine HCl) 25 Mg Tab 25 Mg PO Q6H PRN Novolog Inj (Insulin Aspart) 1,000 Unit/10 Ml Vial 1-9 Units SQ ACHS Max dose at bedtime:(0 )units; sugars less than 70,(0)units; sugars 150-199,(1) unit; sugars 200-249,(3) units; sugars 250-299,(5) units; sugars 300-349,(7) units; sugars greater than 349,(9) units Metoprolol Tartrate 25 Mg Tab 25 Mg PO Q12HR Aspirin EC (Aspirin) 81 Mg Tabdr 81 Mg PO DAILY Reported Omeprazole 20 Mg Tab 20 Mg PO DAILY Prednisone 5 Mg Tab 7.5 Mg PO DAILY Magnesium Oxide 400 Mg Tab 400 Mg PO DAILY Prograf (Tacrolimus) 1 Mg Cap 2 Mg PO BID Mycophenolate (Mycophenolate Mofetil) 250 Mg Cap 750 Mg PO BID Narrative Medication List of her home medications reviewed from the nursing note. Review of Systems Except as stated in HPI: all other systems reviewed are Neg Physical Exam Narrative GENERAL: Awake, alert, elderly, frail, no obvious distress SKIN: Warm and dry. Right foot dressing was dirty and it was removed by me. There is extensive redness on the dorsum of her foot with a central punctum lesion. It is nontender and not warm to touch. There is no drainage. There is no fluctuance. HEAD: Atraumatic. Normocephalic. EYES: Pupils equal and round. No scleral icterus. No injection or drainage. ENT: No nasal bleeding or discharge. Mucous membranes pink and moist. NECK: Trachea midline. No JVD. CARDIOVASCULAR: Regular rate and rhythm. No murmur appreciated. RESPIRATORY: No accessory muscle use. Clear to auscultation. Breath sounds equal bilaterally. GASTROINTESTINAL: Abdomen soft, non-tender, nondistended. Hepatic and splenic margins not palpable. MUSCULOSKELETAL: No obvious deformities. No clubbing. No cyanosis. No edema. NEUROLOGICAL: Awake and alert. No obvious cranial nerve deficits. Motor grossly within normal limits. Normal speech. PSYCHIATRIC: Appropriate mood and affect; insight and judgment normal. Data Data Last Documented VS Vital Signs Date Time Temp Pulse Resp B/P Pulse Ox O2 Delivery O2 Flow Rate FiO2 10/08/16 06:47 73 18 143/67 98 10/08/16 06:29 Room Air 10/08/16 04:09 98.1 Orders Complete Blood Count With Diff (10/08/16 04:24) Basic Metabolic Panel (Bmp) (10/08/16 04:24) Urinalysis - C+S If Indicated (10/08/16 04:24) [place] Sedimentation Rate (10/08/16 04:24) Blood Glucose (10/08/16 04:24) Blood Glucose (10/08/16 05:49) Labs Laboratory Tests Test 10/08/16 04:45 White Blood Count 10.9 TH/MM3 Red Blood Count 3.91 MIL/MM3 Hemoglobin 10.9 GM/DL Hematocrit 32.9 % Mean Corpuscular Volume 84.3 FL Mean Corpuscular Hemoglobin 28.0 PG Mean Corpuscular Hemoglobin 33.2 % Concent Red Cell Distribution Width 16.8 % Platelet Count 279 TH/MM3 Mean Platelet Volume 7.6 FL Neutrophils (%) (Auto) 71.5 % Lymphocytes (%) (Auto) 17.3 % Monocytes (%) (Auto) 9.1 % Eosinophils (%) (Auto) 1.3 % Basophils (%) (Auto) 0.8 % Neutrophils # (Auto) 7.8 TH/MM3 Lymphocytes # (Auto) 1.9 TH/MM3 Monocytes # (Auto) 1.0 TH/MM3 Eosinophils # (Auto) 0.1 TH/MM3 Basophils # (Auto) 0.1 TH/MM3 CBC Comment DIFF FINAL Differential Comment Erythrocyte Sedimentation Rate 30 mm/hr Urine Color YELLOW Urine Turbidity CLEAR Urine pH 7.0 Urine Specific [place] 1.017 Urine Protein 300 mg/dL Urine Glucose (UA) NEG mg/dL Urine Ketones NEG mg/dL Urine Occult Blood SMALL Urine Nitrite NEG Urine Bilirubin NEG Urine Urobilinogen LESS THAN 2.0 MG/DL Urine Leukocyte Esterase TRACE Urine RBC 6 /hpf Urine WBC 1 /hpf Urine Squamous Epithelial <1 /hpf Cells Urine Mucus FEW /lpf Microscopic Urinalysis Comment CULT NOT INDICATED Sodium Level 140 MEQ/L Potassium Level 4.3 MEQ/L Chloride Level 106 MEQ/L Carbon Dioxide Level 28.7 MEQ/L Anion Gap 5 MEQ/L Blood Urea Nitrogen 24 MG/DL Creatinine 0.95 MG/DL Estimat Glomerular Filtration 56 ML/MIN Rate Random Glucose 69 MG/DL Calcium Level 8.2 MG/DL [facility] Medical Decision Making Medical Screen Exam Complete: Yes Emergency Medical Condition: Yes Medical Record Reviewed: Yes Differential Diagnosis Iatrogenic Hypoglycemia, foot cellulitis, electrolyte abnormality Narrative Course 5:36 AM CBC is back and patient is mildly anemic. Waiting for the chemistry results to come back. Patient was given richardson crackers and orange juice and blood sugar was checked an hour later. It was 130. 6:36 AM repeat blood sugar was 136. I will discharge the patient home. Procedures EKG Prior to Arrival: No Diagnosis Primary Impression: Hypoglycemia Additional Impression: Cellulitis Qualified Code: L03.115 - Cellulitis of right lower extremity Additional Instructions: Please continue taking your antibiotic as per the prescription given to you. Follow-up with your primary care on Monday to discuss your insulin dose since this is the second time this has happened. Check your sugar regularly before taking her insulin. Please return to the ER if the condition worsens or any other new concerns. Med/Other Pt SpecificInfo: No Change to Meds Disposition: 01 DISCHARGE HOME Condition: Stable Heath Brennan MD Oct 08, 2016 04:07
[2016-10-08 04:09] VITALS: BP 133/63; PULSE 66; RESP 16; TEMP 98.1; O2SAT 97
[2016-10-08 05:04] LABS: AUTOMATED NEUTROPHIL # 7.8 TH/MM3 (1.8-7.7); BASOPHIL # 0.1 TH/MM3 (0-0.2); BASOPHIL % 0.8 % (0.0-2.0); EOSINOPHIL # 0.1 TH/MM3 (0-0.4); EOSINOPHIL % 1.3 % (0.0-4.0); HEMATOCRIT 32.9 % (35.0-46.0); HEMO FLAGS DIFF FINAL; LYMPH % 17.3 % (9.0-44.0); LYMPHOCYTE # 1.9 TH/MM3 (1.0-4.8); MEAN CELL VOLUME 84.3 FL (80.0-100.0); MEAN CORPUSCULAR HGB CONC 33.2 % (32.0-36.0); MONO % 9.1 % (0.0-8.0); NEUT % 71.5 % (16.0-70.0); PLATELET COUNT 279 TH/MM3 (150-450); RED BLOOD COUNT 3.91 MIL/MM3 (4.00-5.30); RED CELL DISTRIBUTION WIDTH 16.8 % (11.6-17.2); WHITE BLOOD COUNT 10.9 TH/MM3 (4.0-11.0)
[2016-10-08 05:17] LABS: BLOOD, URINE SMALL (NEG); COMMENT (UR) CULT NOT INDICATED; CULTURE IF INDICATED CULT NOT INDICATED; GLUCOSE,URINE NEG (NEG); KETONE, URINE NEG (NEG); MUCUS URINE FEW /lpf (OCC); NITRITE,URINE NEG (NEG); SQUAMOUS EPITHELIAL CELL URINE <1 /hpf (0-5); URINE COLOR YELLOW (YELLW/STRAW)
[2016-10-08 05:27] VITALS: BP 122/64; PULSE 74; RESP 18; O2SAT 97
[2016-10-08 05:31] LABS: BICARBONATE 28.7 MEQ/L (21.0-32.0); POTASSIUM 4.3 MEQ/L (3.5-5.1)
[2016-10-08 06:29] VITALS: BP 143/67; PULSE 77; RESP 18; O2SAT 98
[2016-10-08 06:47] VITALS: BP 143/67
== END 2016-10-08 07:59 | disposition home or self-care (01) ==
LOC: NEPC 04:02
DX: E11.649 Type 2 diabetes mellitus with hypoglycemia without coma (principal); L03.115 Cellulitis of right lower limb; I10 Essential (primary) hypertension; J45.909 Unspecified asthma, uncomplicated; J44.9 Chronic obstructive pulmonary disease, unspecified; Z79.4 Long term (current) use of insulin
CPT/HCPCS: 80048; 81001; 85025; 85652; 99285